=== PATIENT | female | born 1950 | race African-American/Black ===

== ENCOUNTER → 2016-10-28 | Outpatient (CLI) | payer MEDICARE, MEDICAID ==
[~2016-10-28] MED LIST: AMBIEN10 M1 ORAL; AMBIEN5 MG ORAL; ATIVAN; ATIVAN2 MG ORAL; ATIVAN2 MG PO; BENADRYL ALLERG25 M1 PO; BENADRYL25 MG ORAL; CIPRO500 MG PO; CYMBALTA20 MG ORAL; CYMBALTA30 MG ORAL; CYMBALTA60 MG ORAL; DILAUDID 2 MG; DILAUDID2 MG PO; FENTANYL1 EAC1 TOPIC; FOLIC ACID1 MG ORAL; GLUCOPHAGE500 MG PO; HERBAL TEA PO; KLONOPIN1 MG ORAL; LACTULOSE20 GM/301 ORAL; LAMICTAL100 MG PO; LITHIUM CARBON300 MG ORAL; METFORMIN HCL1000 M1 ORAL; MILK THISTLE140 MG PO; MIRTAZAPINE7.5 MG ORAL; NEXIUM10 MG PO; NORCO 10/3251 EA ORAL; NORCO 5-325 TA1 EACH ORAL; PANTOPRAZOLE SO40 MG ORAL; QUETIAPINE FUMA25 MG ORAL; SOMA350 MG PO; TOPAMAX25 MG ORAL; TOPIRAMATE25 MG ORAL; TRAMADOL HCL50 MG ORAL; ULTRAM50 MG ORAL; UNOBMED; VALIUM10 MG ORAL; VITAMIN D250000 UNI1 ORAL; VITAMIN D350000 UNIT ORAL; XANAX2 MG ORAL; ZESTRIL20 MG ORAL; ZOFRAN4 MG ORAL; [UNRECOGNIZED DRUG - OTHER]; milk thistle PO; mvi PO; vit d PO
[2016-10-28 10:02] LABS: BASOPHILS % (AUTO) 0.8 % (0.0-2.0); EOSINOPHILS % (AUTO) 2.6 % (0.0-3.0); LYMPHOCYTES % (AUTO) 18.8 % (20.0-45.0); MEAN CORPUSCULAR HEMOGLOBIN 30.5 PG (27.0-31.0); MEAN CORPUSCULAR HGB CONC 31.7 G/DL (32.0-36.0); MEAN CORPUSCULAR VOLUME 96 FL (80-99); MEAN PLATELET VOLUME 7.8 FL (6.5-10.1); MONOCYTES % (AUTO) 10.8 % (1.0-10.0); PLATELET COUNT 121 K/UL (150-450); RED BLOOD COUNT 3.75 M/UL (4.20-5.40); RED CELL DISTRIBUTION WIDTH 14.3 % (11.6-14.8); WHITE BLOOD COUNT 4.6 K/UL (4.8-10.8)
[2016-10-28 10:21] LABS: ALANINE AMINOTRANSFERASE 7 U/L (3-33); ALBUMIN/GLOBULIN RATIO 0.7 (1.0-2.7); AMYLASE 64 U/L (10-110); ANION GAP 13 (5-15); ASPARTATE AMINO TRANSFERASE 22 U/L (5-40); CALCIUM 8.9 mg/dL (8.6-10.2); CARBON DIOXIDE 25 mEQ/L (20-30); CHLORIDE 102 mEQ/L (98-107); CREATININE 0.6 mg/dL (0.5-0.9); GLOMERULAR FILTRATION RATE > 60 mL/min (>60); HEMOLYSIS 2; LIPASE 65 U/L (< 60); MAGNESIUM 1.8 mg/dL (1.7-2.5); POTASSIUM 3.8 mEQ/L (3.4-4.9); SODIUM 140 mEQ/L (135-145); TOTAL PROTEIN 7.7 g/dL (6.6-8.7)
[2016-10-28 10:57] LABS: BILIRUBIN,DIRECT 0.4 mg/dL (0.1-0.3)
== END | disposition home or self-care (01) ==
LOC: LAB 09:20
DX: J11.1 Influenza due to unidentified influenza virus with other respiratory manifestations (principal); K74.60 Unspecified cirrhosis of liver
CPT/HCPCS: 36415; 80053; 82150; 82248; 82306; 82607; 82746; 83690; 83735; 84443; 85025; 86710

== ENCOUNTER 2017-01-03 10:06 | Emergency (ER) | payer MEDICARE, MEDICAID ==
[~2017-01-03] VITALS: Ht 160 cm; Wt 127.0 kg
[~2017-01-03 10:06] MED LIST changes: +DIOVAN320 MG ORAL; +DIOVAN80 MG ORAL; +IBUPROFEN600 MG ORAL; +VITAMIN D-32000 UNI1 PO
[2017-01-03 10:37] VITALS: BP 127/75
--- NOTE | 2017-01-03 11:01 | Diagnostic Imaging Report ---
Indication: PAIN Technique: One view of the chest Comparison: 01/17/2016 Findings: Lungs and pleural spaces are clear. Heart size is normal. No significant change Impression: No acute process
[2017-01-03 11:42] LABS: BASOPHILS % (AUTO) 1.1 % (0.0-2.0); EOSINOPHILS % (AUTO) 1.6 % (0.0-3.0); LYMPHOCYTES % (AUTO) 21.9 % (20.0-45.0); MEAN CORPUSCULAR HEMOGLOBIN 31.1 PG (27.0-31.0); MEAN CORPUSCULAR HGB CONC 32.3 G/DL (32.0-36.0); MEAN CORPUSCULAR VOLUME 96 FL (80-99); MEAN PLATELET VOLUME 7.7 FL (6.5-10.1); MONOCYTES % (AUTO) 9.7 % (1.0-10.0); NEUTROPHILS % (AUTO) 65.7 % (45.0-75.0); PLATELET COUNT 122 K/UL (150-450); RED BLOOD COUNT 3.97 M/UL (4.20-5.40); RED CELL DISTRIBUTION WIDTH 13.7 % (11.6-14.8); WHITE BLOOD COUNT 4.8 K/UL (4.8-10.8)
[2017-01-03 11:53] LABS: INR 1.1 (0.9-1.1); PROTHROMBIN TIME 11.7 SEC (9.30-11.50)
[2017-01-03 11:54] LABS: TROPONIN I < 0.30 ng/mL (<=0.30)
[2017-01-03 11:55] LABS: ALANINE AMINOTRANSFERASE 7 U/L (3-33); ALBUMIN/GLOBULIN RATIO 0.7 (1.0-2.7); ANION GAP 16 (5-15); ASPARTATE AMINO TRANSFERASE 19 U/L (5-40); CALCIUM 8.8 mg/dL (8.6-10.2); CARBON DIOXIDE 22 mEQ/L (20-30); CHLORIDE 99 mEQ/L (98-107); CHOLESTEROL 174 mg/dL (< 200); CHOLESTEROL/HDL RATIO 2.6 (3.3-4.4); CREATININE 0.8 mg/dL (0.5-0.9); GLOMERULAR FILTRATION RATE > 60 mL/min (>60); HEMOLYSIS 11; LDL CHOLESTEROL (CALC.) 86 mg/dL (60-99); POTASSIUM 3.6 mEQ/L (3.4-4.9); SODIUM 137 mEQ/L (135-145); TOTAL PROTEIN 7.5 g/dL (6.6-8.7)
[2017-01-03] MEDS ORDERED: Norco 5mg/325mg tab ORAL ONE ×2 (12:00→13:15)
[2017-01-03 12:05] LABS: CKMB < 1.5 ng/mL (< 3.8)
--- NOTE | 2017-01-03 12:20 | Emergency Room Report ---
History of Present Illness General Chief Complaint: Multiple Trauma/Fall Source: Patient, Medical Record Present Illness HPI This patient has many chronic medical conditions. She has a history of cirrhosis, rheumatoid arthritis and chronic pain. Patient states that she slipped and fell a couple days ago and has allover body pain. She is requesting pain medication. She denies weakness. She denies neck pain or stiffness. She denies fever or chills. She has no other complaints. Allergies: Coded Allergies: NUT - UNSPECIFIED (Unverified Allergy, Severe, 01/18/16) ASPIRIN (Verified Allergy, Unknown, 01/17/16) EPHEDRINE (Unverified Allergy, Unknown, 09/06/15) HEPARIN ANALOGUES (Verified Allergy, Unknown, 04/09/13) unknown reaction. IBUPROFEN (Verified Allergy, Unknown, UPSET STOMACH/ RASH, 09/15/09) Kiwi (Verified Allergy, Unknown, 10/03/08) STRAWBERRY (Verified Allergy, Unknown, 10/03/08) Uncoded Allergies: ANESTHESIA FOR TOOTH EXTRACTION (Allergy, Unknown, 10/03/08) blood thinner (Allergy, Unknown, 01/18/16) was informed by [facility] not to take blood thinner anymore Patient History Past Medical History: see triage record, HTN, other - cirrhosis, HCV, morbid obesity, fibromyalgia Social History: Denies: alcohol use, drug use, smoking Reviewed Nursing Documentation: PMH: Agreed, PSxH: Agreed Nursing Documentation-PMH Past Medical History: No History, Except For Hx Hypertension: Yes Hx Diabetes: Yes Hx Cancer: No Hx Gastrointestinal Problems: Yes History Of Psychiatric Problem: Yes - bipolar depression Hx Neurological Problems: No Hx Peripheral Neuropathy: Yes Hx Concentration Difficulty: Yes Hx Dizziness: Yes Hx Headaches: Yes Hx Numbness: Yes - upper and lower extremities Hx Weakness: Yes Hx Fatigue: Yes Review of Systems All Other Systems: negative except mentioned in HPI Physical Exam Vital Signs Date Time Temp Pulse Resp B/P Pulse Ox O2 Delivery O2 Flow Rate FiO2 01/03/17 10:11 98.8 86 16 127/75 96 Room Air Sp02 EP Interpretation: reviewed, normal General Appearance: no apparent distress, alert, GCS 15, non-toxic Head: normocephalic, atraumatic Eyes: bilateral eye PERRL, bilateral eye normal inspection ENT: hearing grossly normal, normal pharynx, no angioedema, normal voice Neck: full range of motion, supple/symm/no masses Respiratory: chest non-tender, lungs clear, normal breath sounds, speaking full sentences Cardiovascular #1: regular rate, rhythm, no edema Gastrointestinal: normal bowel sounds, non tender, soft, non-distended, no guarding, no rebound Rectal: deferred Musculoskeletal: back normal, gait/station normal, normal range of motion, non- tender Neurologic: alert, oriented x3, responsive, motor strength/tone normal, sensory intact, speech normal Psychiatric: judgement/insight normal, memory normal, mood/affect normal, no suicidal/homicidal ideation Skin: normal color, no rash, warm/dry, well hydrated Medical Decision Making Diagnostic Impression: Primary Impression: Chronic pain ER Course This patient has a clinical presentation consistent with mechanical back pain and chronic pain. There are no red flags on physical exam. The patient denies any concerning features such as trauma, fevers, night sweats, history of malignancy, pain worse at night, IV drug abuse, urinary/fecal incontinence or retention, focal weakness or change in sensation, or refractory pain. Given these pertinent negatives in the history and physical exam an emergent cause of the back pain such as epidural abscess, metastasis to bone, cauda equina syndrome, and fracture is less likely. I also doubt emergent cardiovascular cause of back pain such as aortic dissection a ruptured abdominal aortic aneurysm given patient with equal pulses in all 4 extremities with no diastolic murmur or pulsatile abdominal mass. The patient was counseled that, though unlikely, the possibility of an emergent cause of back pain may still be present and that the patient should return immediately if symptoms persist or worsen. The symptoms are reproducible with movement. Patient had a benign evaluation and neurologic examination. CT of the head is unremarkable. Laboratory workup is noncontributory. No emergency etiology was identified. Labs Test 01/03/17 11:30 White Blood Count 4.8 K/UL (4.8-10.8) Red Blood Count 3.97 M/UL (4.20-5.40) Hemoglobin 12.3 G/DL (12.0-16.0) Hematocrit 38.2 % (37.0-47.0) Mean Corpuscular Volume 96 FL (80-99) Mean Corpuscular Hemoglobin 31.1 PG (27.0-31.0) Mean Corpuscular Hemoglobin Concent 32.3 G/DL (32.0-36.0) Red Cell Distribution Width 13.7 % (11.6-14.8) Platelet Count 122 K/UL (150-450) Mean Platelet Volume 7.7 FL (6.5-10.1) Neutrophils (%) (Auto) 65.7 % (45.0-75.0) Lymphocytes (%) (Auto) 21.9 % (20.0-45.0) Monocytes (%) (Auto) 9.7 % (1.0-10.0) Eosinophils (%) (Auto) 1.6 % (0.0-3.0) Basophils (%) (Auto) 1.1 % (0.0-2.0) Prothrombin Time 11.7 SEC (9.30-11.50) Prothromb Time International Ratio 1.1 (0.9-1.1) Activated Partial Thromboplast Time 26 SEC (23-33) Sodium Level 137 mEQ/L (135-145) Potassium Level 3.6 mEQ/L (3.4-4.9) Chloride Level 99 mEQ/L (98-107) Carbon Dioxide Level 22 mEQ/L (20-30) Anion Gap 16 (5-15) Blood Urea Nitrogen 11 mg/dL (7-23) Creatinine 0.8 mg/dL (0.5-0.9) Estimat Glomerular Filtration Rate > 60 mL/min (>60) Glucose Level 227 mg/dL (74-106) Calcium Level 8.8 mg/dL (8.6-10.2) Total Bilirubin 1.3 mg/dL (0.0-1.2) Direct Bilirubin 0.3 mg/dL (0.1-0.3) Aspartate Amino Transf (AST/SGOT) 19 U/L (5-40) Alanine Aminotransferase (ALT/SGPT) 7 U/L (3-33) Alkaline Phosphatase 75 U/L (35-104) Total Creatine Kinase 56 U/L (26-140) Creatine Kinase MB < 1.5 ng/mL (< 3.8) Creatine Kinase MB Relative Index Troponin I < 0.30 ng/mL (<=0.30) Total Protein 7.5 g/dL (6.6-8.7) Albumin 3.3 g/dL (3.5-5.2) Globulin 4.2 g/dL Albumin/Globulin Ratio 0.7 (1.0-2.7) Triglycerides Level 103 mg/dL (< 150) Cholesterol Level 174 mg/dL (< 200) LDL Cholesterol 86 mg/dL (60-99) HDL Cholesterol 67 mg/dL (> 60) Cholesterol/HDL Ratio 2.6 (3.3-4.4) EKG Diagnostic Results Rate: normal ST Segments: no acute changes Rhythm Strip Diag. Results EP Interpretation: yes Rate: 80 Rhythm: NSR, no PVC's, no ectopy CT/MRI/US Diagnostic Results CT/MRI/US Diagnostic Results : Imaging Test Ordered: CT head Impression No intracranial bleed, mass effect or edema. See official report. Last Vital Signs Date Time Temp Pulse Resp B/P Pulse Ox O2 Delivery O2 Flow Rate FiO2 01/03/17 10:37 16 127/75 96 Room Air 01/03/17 10:11 98.8 86 Status: improved Disposition: HOME, SELF-CARE Condition: Improved Referrals: NOT CHOSEN IPA/,REFERRING (PCP) JENN MODI D.O. Jan 03, 2017 12:20
[2017-01-03 12:28] LABS: BILIRUBIN,DIRECT 0.3 mg/dL (0.1-0.3)
[2017-01-03 13:01] VITALS: BP 116/73
[2017-01-03 13:14] VITALS: BP 116/73
--- NOTE | 2017-01-03 16:44 | Diagnostic Imaging Report ---
Indications: Dizziness, status post fall, head trauma Technique: Spiral acquisitions obtained through the brain. Angled axial and coronal 5 x 5 mm slices were reconstructed. Total dose length product 1333 mGycm. CTDI vol(s) 70 mGy. Dose reduction achieved using automated exposure control Comparison: 07/10/2013 Findings: Periventricular deep white matter of low attenuation is again demonstrated, slightly more striking on the prior exam. Small caliber of the ventricles is stable. Normal extra axial CSF spaces. No acute hemorrhage or edema, mass effect or midline shift. Intact calvarium. Visualized orbits and sinuses are unremarkable. Impression: Progressive periventricular deep white matter low attenuation, since 07/02/2013 exam: Consistent with chronic ischemic changes. Negative for acute intracranial bleed or mass effect. The CT scanner at [facility] is accredited by the [employer] and the scans are performed using protocols designed to limit radiation exposure to as low as reasonably achievable to attain images of sufficient resolution adequate for diagnostic evaluation.
--- NOTE | 2017-01-06 20:22 | Cardiology Report ---
APPROVED REPORT EKG Measurement Heart [id number] Normal sinus rhythm Nonspecific T wave abnormality Abnormal ECG
== END 2017-01-03 13:27 | disposition home or self-care (01) ==
LOC: EMR 10:28
DX: G89.29 Other chronic pain (principal); M54.9 Dorsalgia, unspecified; R42 Dizziness and giddiness; M06.9 Rheumatoid arthritis, unspecified; I10 Essential (primary) hypertension; E11.9 Type 2 diabetes mellitus without complications; Z91.018 Allergy to other foods; Z88.6 Allergy status to analgesic agent; Z88.8 Allergy status to other drugs, medicaments and biological substances
CPT/HCPCS: 36415; 70450; 71010; 80053; 80061; 82248; 82550; 82553; 82962; 84484; 85025; 85610; 85730; 93005; 96360

== ENCOUNTER 2017-04-17 13:25 | Outpatient (CLI) | payer MEDICARE, MEDICAID ==
--- NOTE | 2017-04-17 13:57 | GI Progress Note ---
Assessment/Plan Problems: (1) Esophageal varices ICD Codes: I85.00 - Esophageal varices without bleeding SNOMED: 98028495 (2) Cirrhosis ICD Codes: K74.60 - Cirrhosis SNOMED: 27165879 (3) Diabetes ICD Codes: E11.9 - Diabetes SNOMED: 88562050 (4) Anxiety ICD Codes: F41.9 - Anxiety SNOMED: 32730413 (5) Chronic pain ICD Codes: G89.29 - Chronic pain SNOMED: 82686005 (6) Abdominal pain, generalized ICD Codes: R10.84 - Generalized abdominal pain SNOMED: 376671859 Status: stable Status Narrative Seen with Dr. Minor. Assessment/Plan Endoscopy Procedure Note Indication for Procedure: screening Procedures Performed: colonoscopy Operative Findings/Diagnosis: 3 polyps PETR MINOR - Jun 05, 2016 11:21 s/p Hep C tx with Harvoni >> repeat Hep C quant lab draw ordered abdominal U/S referred to Dr. Fernandez for DM mgmt RTC after imaging and blood studies will consider repeat colon next year given poor prep on previous Subjective Subjective abdominal pain >> RLQ/RUQ Nausea after eating has not taken DM medication x 1 months, dc metformin by self here for vicodan refill Objective T 98.2 BP 139/77 P 70 98 RA weight gain >> 304lbs General Appearance: no apparent distress, alert, obese Cardiovascular: normal rate Respiratory/Chest: normal breath sounds, no respiratory distress Abdominal Exam: normal bowel sounds, non tender, soft Genitourinary/Rectal: normal rectal exam Extremities: normal range of motion Edilma Juarez N.P. Apr 17, 2017 13:57
[2017-04-17 14:07] VITALS: BP 139/77
--- NOTE | 2017-04-18 08:01 | Reflections ---
Date : 04/17/2017 Subjective: The patient is withdrawn, guarded, anxious, internally preoccupied. Mood is depressed and anxious. Mental Status Evaluation: Alert and oriented to self and situation. Mood is anxious. Affect is appropriate. Thought process is linear. Cognition is intact. Impulse control, insight, and judgment is fair. DIAGNOSIS: Bipolar disorder, depressed. Plan: Continue with current management. Continue to monitor symptoms and behavior. The patient still reports feeling a lot of anxiety, depression, and paranoia. The patient has p.r.n. Seroquel and she is advised to use it when she feels nervous. She talked about risks and benefits, side effects in terms of interactions between benzodiazepines and Seroquel. She was advised not to take the medication when driving. Otherwise, no new symptoms observed or reported. The patient is seen in brief supportive psychotherapy. Chart reviewed. Case discussed with staff. We will continue to monitor the case. Isma Little M.D. DR: BRIDGET JOB#: [id number] CC: YANDY
[2017-05-15] MEDS ORDERED: ATIVAN1 MG ORAL (13:42)
== END 2017-04-17 14:00 | disposition home or self-care (01) ==
LOC: PAN 13:25
DX: I85.00 Esophageal varices without bleeding (principal); K74.60 Unspecified cirrhosis of liver; E11.9 Type 2 diabetes mellitus without complications; F41.9 Anxiety disorder, unspecified; G89.29 Other chronic pain; R10.84 Generalized abdominal pain; R63.5 Abnormal weight gain
CPT/HCPCS: 99211

== ENCOUNTER 2017-06-02 13:56 | Outpatient (CLI) | payer MEDICARE, MEDICAID ==
[~2017-06-02 13:56] MED LIST changes: +ATIVAN1 MG ORAL
[2017-06-02] MEDS ORDERED: SOMA250 MG PO (14:30)
--- NOTE | 2017-06-02 14:30 | GI Progress Note ---
Assessment/Plan Problems: (1) Chronic pain ICD Codes: G89.29 - Chronic pain SNOMED: 14740497 (2) Diabetes ICD Codes: E11.9 - Diabetes SNOMED: 78444149 (3) Cirrhosis ICD Codes: K74.60 - Cirrhosis SNOMED: 43487261 (4) Hepatitis C ICD Codes: B19.20 - Hepatitis C SNOMED: 01231137 Status: stable Status Narrative Seen with Dr. Minor. Assessment/Plan Endoscopy Procedure Note Indication for Procedure: screening Procedures Performed: colonoscopy Operative Findings/Diagnosis: 3 polyps PETR MINOR - Jun 05, 2016 11:21 s/p Hep C tx with Harvoni >> repeat Hep C quant lab draw ordered abdominal U/S RTC after imaging and blood studies will consider repeat colon next year given poor prep on previous Subjective Subjective back, knee, shoulder pain no GI symptoms did not do abdominal U/S or Hep C quant recent admission to [facility] PCP dc norco, ordered soma and voltaren gel Objective T 98.7 BP 130/73 HR 79 93 RA General Appearance: WD/WN, no apparent distress, alert, overweight Cardiovascular: normal rate Respiratory/Chest: normal breath sounds, no respiratory distress Abdominal Exam: normal bowel sounds, non tender, soft Extremities: normal range of motion, non-tender Edilma Juarez N.P. Jun 02, 2017 14:30
[2017-06-02 14:59] VITALS: BP 130/73
== END 2017-06-02 14:50 | disposition home or self-care (01) ==
LOC: PAN 13:56
DX: G89.29 Other chronic pain (principal); E11.9 Type 2 diabetes mellitus without complications; K74.60 Unspecified cirrhosis of liver; B19.20 Unspecified viral hepatitis C without hepatic coma; M54.9 Dorsalgia, unspecified
CPT/HCPCS: 99211

== ENCOUNTER 2017-06-03 10:00 | Outpatient (CLI) | payer MEDICARE, MEDICAID ==
[~2017-06-03 10:00] MED LIST changes: +SOMA250 MG PO
[2017-06-03 11:10] LABS: LYMPHOCYTES % (AUTO) 23.4 % (20.0-45.0); MEAN CORPUSCULAR HEMOGLOBIN 31.2 PG (27.0-31.0); MEAN CORPUSCULAR HGB CONC 31.9 G/DL (32.0-36.0); MEAN CORPUSCULAR VOLUME 98 FL (80-99); MEAN PLATELET VOLUME 6.8 FL (6.5-10.1); MONOCYTES % (AUTO) 8.7 % (1.0-10.0); PLATELET COUNT 121 K/UL (150-450); RED BLOOD COUNT 3.59 M/UL (4.20-5.40); RED CELL DISTRIBUTION WIDTH 13.4 % (11.6-14.8); WHITE BLOOD COUNT 5.4 K/UL (4.8-10.8)
[2017-06-03 11:34] LABS: ALANINE AMINOTRANSFERASE 16 U/L (12-78); ALBUMIN/GLOBULIN RATIO 0.6 (1.0-2.7); ANION GAP 6 mmol/L (5-15); ASPARTATE AMINO TRANSFERASE 25 U/L (15-37); CARBON DIOXIDE 29 MMOL/L (21-32); CHLORIDE 107 MMOL/L (98-107); CREATININE 0.8 MG/DL (0.55-1.30); GLOMERULAR FILTRATION RATE > 60 mL/min (>60); POTASSIUM 4.2 MMOL/L (3.5-5.1); SODIUM 142 MMOL/L (136-145); TOTAL PROTEIN 8.3 G/DL (6.4-8.2)
[2017-06-03 12:36] LABS: HEMOGLOBIN A1C 5.9 % (4.3-6.0)
[2017-06-05 15:08] LABS: HEPATITIS C QUANT HCV Not Detected IU/mL (.)
== END 2017-06-03 12:00 | disposition home or self-care (01) ==
LOC: LAB 10:00 → ULS 10:55 → LAB 12:00
DX: B19.20 Unspecified viral hepatitis C without hepatic coma (principal)
CPT/HCPCS: 36415; 80053; 83036; 85025; 87522

== ENCOUNTER 2017-06-30 13:26 | Outpatient (CLI) | payer MEDICARE, MEDICAID ==
[2017-06-30 10:05] LABS: ALANINE AMINOTRANSFERASE 14 U/L (12-78); AMYLASE 64 U/L (25-115); ASPARTATE AMINO TRANSFERASE 24 U/L (15-37); BILIRUBIN,DIRECT 0.3 MG/DL (0.0-0.3); LIPASE 339 U/L (73-393); TOTAL PROTEIN 8.2 G/DL (6.4-8.2)
--- NOTE | 2017-07-02 08:12 | Diagnostic Imaging Report ---
Indication: Abdominal pain, hepatitis C, cirrhosis Technique: Rousseau-scale and duplex images of the upper abdomen were obtained Comparison: 08/07/2013 Findings: Gallbladder demonstrates gallstones. No wall thickening or pericholecystic fluid Sonographic Simon's sign is negative. Common bile duct measures 5 mm in diameter. No intrahepatic biliary ductal dilatation. Liver demonstrates coarsened echogenicity and surface nodularity. There is reversed flow in the portal vein. There are varices in the epigastric region. Pancreas is unremarkable. The spleen is enlarged, measuring 14.3 cm long axis dimension Left kidney measures 13.5 cm in length. Right kidney measures 11.7 cm length. Both kidneys demonstrate normal echogenicity. There is no hydronephrosis. No focal abnormality . Abdominal aorta is partially obscured by bowel gas, visualized portions are non-aneurysmal . Impression: Cholelithiasis. Negative for dilated ducts Evidence of hepatic cirrhosis, also previously described Evidence of portal hypertension, with hepatofugal portal vein flow, varices and splenomegaly, also previously described
== END 2017-06-30 15:26 | disposition home or self-care (01) ==
LOC: ULS 13:26
DX: K74.60 Unspecified cirrhosis of liver (principal); R10.9 Unspecified abdominal pain; Z86.19 Personal history of other infectious and parasitic diseases
CPT/HCPCS: 36415; 76700; 80076; 82105; 82150; 83690

== ENCOUNTER 2017-07-08 11:17 | Outpatient (CLI) | payer MEDICARE, MEDICAID ==
--- NOTE | 2015-08-01 16:37 | IOP Daily Group Progress Note ---
IOP Daily Group Progress Note Treatment Plan/Target Problem: Date: Aug 01, 2015 Problem: depression Program: reflections Group Reflections - Friday: group 2 (10:35am-11:20am) Therapy Goal(s) of Group: assertiveness skills, coping tools for symptoms, coping with change, identifying strengths, impact of current issues on mood, improving self esteem Observations: anxious, engaged, low energy, participated Staff Intervention: assessed for safety/suicidality, assessed pt's current mood , assisted identifying coping tools, assisted with identifying symptoms, assisted with problem solving, encouraged patient participation, clarified pt issues, facilitated discussion, normalized feelings, provided support, reflective listening, reframed, validated feelings Response/Progress Noted: Pt participated in a discussion group about processing and skill [id number] and with discussion of short term and credit operations specialist goals with steps/ways to achieve them. Encouraged pt with identifying personal goals. Discussed the achievement of goals help with a positive mood, pride and a sense of accomplishment when goals are met. Pt stated "I like coming to group and happy to be there." She also said that she doesn't come to often. MARIBETH PINEDA Aug 01, 2015 16:37
[2017-07-08 11:37] VITALS: BP 158/86
--- NOTE | 2017-07-09 09:19 | GI Progress Note ---
Assessment/Plan Problems: (1) Diabetes ICD Codes: E11.9 - Diabetes SNOMED: 63668933 (2) Cirrhosis ICD Codes: K74.60 - Cirrhosis SNOMED: 16513854 (3) Esophageal varices ICD Codes: I85.00 - Esophageal varices without bleeding SNOMED: 50035821 (4) Chronic pain ICD Codes: G89.29 - Chronic pain SNOMED: 84553408 (5) Abdominal pain, generalized ICD Codes: R10.84 - Generalized abdominal pain SNOMED: 617331323 Status: stable Status Narrative Seen with Dr. Minor. Assessment/Plan Endoscopy Procedure Note Indication for Procedure: screening Procedures Performed: colonoscopy Operative Findings/Diagnosis: 3 polyps PETR MINOR - Jun 05, 2016 11:21 abdominal U/S reviewed with patient >> - Impression: Cholelithiasis. Negative for dilated ducts - Evidence of hepatic cirrhosis, also previously described - Evidence of portal hypertension, with hepatofugal portal vein flow, varices and splenomegaly, also previously described s/p Hep C tx with Harvoni >> repeat Hep C quant lab draw, not detected on lab draw. RECOMMENDATIONS: RTC x 6 months for repeat U/S will consider repeat colon next year given poor prep on previous Subjective Gastrointestinal/Abdominal: Reports: no symptoms Objective Last 24 Hour Vital Signs Date Time Temp Pulse Resp B/P (MAP) Pulse Ox O2 Delivery O2 Flow Rate FiO2 07/08/17 11:37 98.3 73 18 158/86 100 General Appearance: WD/WN, no apparent distress, alert, obese Cardiovascular: normal rate Respiratory/Chest: normal breath sounds, no respiratory distress Abdominal Exam: normal bowel sounds, non tender, soft Extremities: normal range of motion, non-tender Edilma Juarez N.Boby Jul 09, 2017 09:19
== END 2017-07-08 11:55 | disposition home or self-care (01) ==
LOC: PAN 11:17
DX: K74.60 Unspecified cirrhosis of liver (principal); E11.9 Type 2 diabetes mellitus without complications; I85.00 Esophageal varices without bleeding; G89.29 Other chronic pain; R10.84 Generalized abdominal pain; K80.20 Calculus of gallbladder without cholecystitis without obstruction
CPT/HCPCS: 99212

== ENCOUNTER 2017-07-25 22:28 | Emergency (ER) | payer MEDICARE, MEDICAID ==
[~2017-07-25] VITALS: Ht 157.5 cm; Wt 131.5 kg
[2017-07-25 23:13] VITALS: BP 167/89
[2017-07-25] MEDS ORDERED: HYDROCHLOROTHIA25 MG ORAL (23:17)
[2017-07-25] MEDS ORDERED: CATAPRES0.1 MG ORAL (23:17)
--- NOTE | 2017-07-25 23:18 | Emergency Room Report ---
History of Present Illness General Chief Complaint: Eye Problems Source: Patient Present Illness HPI Is a 67-year-old female with history of asthma pressure. She is taking losartan but doesn't know the dose. She presents with chief complaint of redness to her right eye. Onset yesterday. Now the whole I is red. No fever or chills but no nausea no vomiting. No trauma. Patient said her blood pressure been running high with systolic in the 150-160. Yesterday was close to 200. No headache. No fever or chills. No chest pain. No coughing or congestion. Allergies: Coded Allergies: ASPIRIN (Verified Allergy, Unknown, 01/17/16) EPHEDRINE (Unverified Allergy, Unknown, 09/06/15) HEPARIN ANALOGUES (Verified Allergy, Unknown, 04/09/13) unknown reaction. IBUPROFEN (Verified Allergy, Unknown, UPSET STOMACH/ RASH, 09/15/09) Patient History Past Medical History: see triage record, old chart reviewed, HTN Past Surgical History: other Pertinent Family History: none Social History: Denies: smoking Now: No Immunizations: other Reviewed Nursing Documentation: PMH: Agreed, PSxH: Agreed Nursing Documentation-PMH Hx Cardiac Problems: No - Hep C Hx Hypertension: Yes Hx Diabetes: Yes Hx Cancer: No Hx Gastrointestinal Problems: Yes - Esophageal varices, Cirrhosis Hx Neurological Problems: No Hx Peripheral Neuropathy: Yes Hx Concentration Difficulty: Yes Hx Dizziness: Yes Hx Headaches: Yes Hx Numbness: Yes - upper and lower extremities Hx Weakness: Yes Hx Fatigue: Yes Review of Systems Eye: Denies: eye pain, blurred vision ENT: Denies: ear pain, nose congestion, throat swelling Respiratory: Denies: cough, shortness of breath Cardiovascular: Denies: chest pain, palpitations Gastrointestinal: Denies: abdominal pain, diarrhea, nausea, vomiting Musculoskeletal: Denies: back pain, joint pain Skin: Denies: rash Neurological: Denies: headache, numbness Endocrine: Denies: increased thirst, increased urine Hematologic/Lymphatic: Denies: easy bruising All Other Systems: negative except mentioned in HPI Physical Exam Vital Signs Date Time Temp Pulse Resp B/P (MAP) Pulse Ox O2 Delivery O2 Flow Rate FiO2 07/25/17 22:35 98.1 77 16 167/89 98 Room Air vitals with high blood pressure Sp02 EP Interpretation: reviewed, normal General Appearance: well appearing, no apparent distress, alert Head: normocephalic, atraumatic Eyes: right eye other - Right eye with diffuse conjuncval hemorrhage, bilateral eye PERRL, bilateral eye EOMI ENT: hearing grossly normal, normal pharynx Neck: full range of motion, supple, no meningismus Respiratory: chest non-tender, lungs clear, normal breath sounds Cardiovascular #1: regular rate, rhythm, no murmur Gastrointestinal: normal bowel sounds, non tender, no mass, no organomegaly, no bruit, non-distended Musculoskeletal: back normal, gait/station normal, normal range of motion Psychiatric: mood/affect normal Skin: warm/dry Medical Decision Making Diagnostic Impression: Primary Impression: Essential (primary) hypertension Additional Impression: Subconjunctival hemorrhage of right eye ER Course Patient with some conjunctival hemorrhage. Most likely secondary to her high blood pressure. I see no evidence of endorgan damage. No infection. We'll discharge home. Last Vital Signs Date Time Temp Pulse Resp B/P (MAP) Pulse Ox O2 Delivery O2 Flow Rate FiO2 07/25/17 23:12 167/89 07/25/17 22:35 98.1 77 16 98 Room Air Status: improved Disposition: HOME, SELF-CARE Condition: Stable Scripts Clonidine Hcl* (CATAPRES*) 0.1 Mg Tablet 0.1 MG ORAL EVERY 8 HOURS for systolic blood pressure >160, #30 TAB Prov: EVAN BORRERO M.D. 07/25/17 Hydrochlorothiazide* (HYDROCHLOROTHIAZIDE*) 25 Mg Tablet 25 MG ORAL DAILY, #30 TAB Prov: EVAN BORRERO M.D. 07/25/17 Additional Instructions: Followup with your DrYue in 2-5 days for blood pressure recheck. Return if symptom worsen. EVAN BORRERO M.D. Jul 25, 2017 23:18
[2017-07-25 23:29] VITALS: BP 119/76
[2017-07-25 23:31] VITALS: BP 119/76
--- NOTE | 2017-08-03 16:00 | Reflections ---
DATE : 07/24/2017 SUBJECTIVE: The patient is pleasant, calm, and cooperative with interview. Follows directions. Denies any new complaints. She continues to be somatically preoccupied. Multiple complaints of pain, also anxiety, depression, and irritability. MENTAL STATUS EVALUATION: Alert and oriented to self and situation. Mood is anxious. Affect is appropriate. Thought process is linear. Cognition is intact. Impulse control, insight, and judgment is fair. DIAGNOSIS: Bipolar disorder, depressed. PLAN: Continue with current management. Continue to monitor symptoms and behavior. Medications reviewed. Chart reviewed. Case discussed with staff. The patient is seen in a brief supportive psychotherapy. Cymbalta is increased to 120 mg daily. Risks, benefits, and side effects discussed. Isma Little M.D. DR: ANN MARIE JOB#: [id number] CC: YANDY
[2017-08-07] MEDS ORDERED: ABILIFY10 MG ORAL (13:45)
--- NOTE | 2017-08-11 17:16 | IOP Daily Group Progress Note ---
IOP Daily Group Progress Note Treatment Plan/Target Problem: Date: Aug 06, 2017 Problem: depression Program: reflections Group Reflections - Friday: group 2 (10:35am-11:20am) Therapy Focus/Approach of Group: skills Goal(s) of Group: coping tools for symptoms, measurable signs of progress, verbalize current thoughts and mood Observations: depressed mood, engaged, lucid, open, participated, self disclosing Staff Intervention: assisted identifying coping tools, encouraged patient participation, facilitated discussion, prompted pt, provided support, reflective listening, summarized, validated feelings Staff Intervention: Therapist provided a safe space for patients to share and work on their issues and to identify and verbalize what life issues they are experiencing and coping skills they are utilizing with those issues, and to share signs of personal progress since starting group therapy. Response/Progress Noted: Pt. participated in a psychotherapeutic process group where Pt. would identify and verbalize what life issues they are experiencing and coping skills they are utilizing with those issues, and to identify and verbalize measurable signs of progress they have made since starting group therapy. This was evidenced by the Pt. stating that since coming to this therapy her "definition of unconditional love has been redefined" because of the support of this group and staff. Vahid Sow Aug 11, 2017 17:16
== END 2017-07-25 23:31 | disposition home or self-care (01) ==
LOC: EMR 23:00
DX: H11.31 Conjunctival hemorrhage, right eye (principal); I10 Essential (primary) hypertension; E11.9 Type 2 diabetes mellitus without complications; K74.60 Unspecified cirrhosis of liver; B19.20 Unspecified viral hepatitis C without hepatic coma; Z88.6 Allergy status to analgesic agent; Z88.8 Allergy status to other drugs, medicaments and biological substances
CPT/HCPCS: 90834; 90853; 99284

== ENCOUNTER 2017-09-29 13:22 | Outpatient (CLI) | payer MEDICARE, MEDICAID ==
[~2017-09-29 13:22] MED LIST changes: +ABILIFY10 MG ORAL; +CATAPRES0.1 MG ORAL; +HYDROCHLOROTHIA25 MG ORAL
--- NOTE | 2017-09-29 14:33 | GI Progress Note ---
Assessment/Plan Problems: (1) Cirrhosis ICD Codes: K74.60 - Cirrhosis SNOMED: 53361966 (2) Abdominal pain, generalized ICD Codes: R10.84 - Generalized abdominal pain SNOMED: 238392594 (3) Hepatitis C ICD Codes: B19.20 - Hepatitis C SNOMED: 68385864 Status: stable Status Narrative Seen with Dr. Minor. Assessment/Plan S/P Hep C tx abdominal US 06/29 >> cirrhosis repeat US in 12/2017. Zpack RTC x 3 months Subjective Subjective yellow cough SOB right sided flank pain sore throat Objective T 98.1 BP 164/81 HR 78 97 RA Denies any unintentional weight loss or changes in dietary habits. General Appearance: WD/WN, no apparent distress, alert, obese Cardiovascular: normal rate Respiratory/Chest: normal breath sounds, no respiratory distress Abdominal Exam: normal bowel sounds, non tender, soft Extremities: normal range of motion, non-tender Edilma Juarez N.P. Sep 29, 2017 14:33
== END 2017-09-29 13:55 | disposition home or self-care (01) ==
LOC: PAN 13:22
DX: K74.60 Unspecified cirrhosis of liver (principal); R10.84 Generalized abdominal pain; B19.20 Unspecified viral hepatitis C without hepatic coma; E66.9 Obesity, unspecified
CPT/HCPCS: 99211

== ENCOUNTER 2018-01-06 09:35 | Outpatient (CLI) | payer MEDICARE, MEDICAID ==
[~2018-01-06 09:35] MED LIST changes: +ALPRAZOLAM1 MG ORAL
--- NOTE | 2018-01-06 10:32 | GI Progress Note ---
Assessment/Plan Problems: (1) Cirrhosis ICD Codes: K74.60 - Cirrhosis SNOMED: 69255581 (2) Abdominal pain, generalized ICD Codes: R10.84 - Generalized abdominal pain SNOMED: 765554450 (3) Chronic pain ICD Codes: G89.29 - Chronic pain SNOMED: 37541313 (4) Esophageal varices ICD Codes: I85.00 - Esophageal varices without bleeding SNOMED: 72678162 (5) Diabetes ICD Codes: E11.9 - Diabetes SNOMED: 43184401 (6) Anxiety ICD Codes: F41.9 - Anxiety SNOMED: 46825189 Status: stable Status Narrative Seen with Dr. Minor. Assessment/Plan 2016 colonoscopy x 3 polyps history of cirrhosis s/p Hep C tx RUQ abdominal pain repeat abdominal U/S needs repeat labs recommend games manager consult RTC after imaging study The patient was seen and examined at bedside and all new and available data was reviewed in the patients chart. I agree with the above findings, impression and plan. (Patient seen earlier today. Signature stamp does not reflect patient encounter time.). - Ashutosh Minor MD Subjective Subjective diarrhea x 3 days, recent travel to [place] wheezing generalize fatigue Objective T 97.6 BP 133/62 P 78 95 RA weight gain General Appearance: WD/WN, no apparent distress, alert, obese Cardiovascular: normal rate Respiratory/Chest: normal breath sounds, no respiratory distress Abdominal Exam: normal bowel sounds, non tender, soft Extremities: normal range of motion, non-tender Андрей Juarez NP Jan 06, 2018 10:32
[2018-01-06 11:10] VITALS: BP 133/62
== END 2018-01-06 10:08 | disposition home or self-care (01) ==
LOC: PAN 09:35
DX: K74.60 Unspecified cirrhosis of liver (principal); R10.84 Generalized abdominal pain; G89.29 Other chronic pain; I85.00 Esophageal varices without bleeding; E11.9 Type 2 diabetes mellitus without complications; F41.9 Anxiety disorder, unspecified
CPT/HCPCS: 99212

== ENCOUNTER 2018-01-22 04:38 | Inpatient (IN) | payer MEDICARE, MEDICAID ==
[2018-01-22] VITALS (7 sets, daily range): BP systolic 88–135; BP diastolic 49–87
[~2018-01-22] VITALS: Ht 160 cm; Wt 127.0 kg
[2018-01-22] MEDS ORDERED: NORCO 7.5-3251 EACH ORAL (04:50)
[2018-01-22] MEDS ORDERED: POTASSIUM CHLOR8 ME2 PO (04:50)
[2018-01-22] MEDS ORDERED: LISINOPRIL5 MG ORAL (04:50)
[2018-01-22] MEDS ORDERED: TRULICITY0.75 MG/0. SQ (04:50)
--- NOTE | 2018-01-22 04:59 | Emergency Room Report ---
History of Present Illness General Chief Complaint: Chest Pain Source: Patient Present Illness HPI Patient present with complaints of mid epigastric pain was some discomfort in the midsternal area as well describes as a cramping sensation onset for 3-4 hours now Denies any vomiting or diarrhea denies any back or flank pain denies any dysuria frequency Patient has history of cirrhosis and liver disease Along with bipolar disorder Denies any recent fall or trauma Allergies: Coded Allergies: ASPIRIN (Verified Allergy, Unknown, 01/22/18) EPHEDRINE (Unverified Allergy, Unknown, 01/22/18) HEPARIN ANALOGUES (Verified Allergy, Unknown, 01/22/18) unknown reaction. IBUPROFEN (Verified Allergy, Unknown, UPSET STOMACH/ RASH, 01/22/18) Patient History Past Medical History: see triage record Pertinent Family History: none Last Menstrual Period: n/a Reviewed Nursing Documentation: PMH: Agreed; PSxH: Agreed Nursing Documentation-PMH Past Medical History: No History, Except For Hx Cardiac Problems: No - Hep C Hx Hypertension: Yes Hx Asthma: Yes Hx Diabetes: Yes Hx Cancer: No Hx Gastrointestinal Problems: Yes - Esophageal varices, Cirrhosis Hx Neurological Problems: No Hx Peripheral Neuropathy: Yes Hx Concentration Difficulty: Yes Hx Dizziness: Yes Hx Headaches: Yes Hx Numbness: Yes - upper and lower extremities Hx Weakness: Yes Hx Fatigue: Yes Review of Systems All Other Systems: negative except mentioned in HPI Physical Exam Vital Signs Date Time Temp Pulse Resp B/P (MAP) Pulse Ox O2 Delivery O2 Flow Rate FiO2 01/22/18 04:40 98.1 55 16 121/87 96 Room Air 98.1 Sp02 EP Interpretation: reviewed, normal General Appearance: well appearing, no apparent distress Head: normocephalic, atraumatic Eyes: bilateral eye PERRL, bilateral eye EOMI ENT: hearing grossly normal, normal pharynx, TMs + canals normal, uvula midline Neck: full range of motion, supple, no meningismus, no bony tend Respiratory: lungs clear, normal breath sounds, no rhonchi, no respiratory distress, no retraction, no accessory muscle use Cardiovascular #1: normal peripheral pulses, regular rate, rhythm, no gallop, no JVD, no murmur Gastrointestinal: normal bowel sounds, non tender, soft, no mass, no organomegaly, non-distended, no guarding, no hernia, no pulsatile mass, no rebound Genitourinary: no CVA tenderness Musculoskeletal: normal inspection Neurologic: oriented x3, responsive, halftone operator III-XII nml as tested, motor strength/ tone normal, sensory intact Psychiatric: mood/affect normal Skin: other Lymphatic: normal inspection, no adenopathy Medical Decision Making Diagnostic Impression: Primary Impression: ACS (acute coronary syndrome) ER Course Patient is a fairly complex patient with multiple differential to consideration including but not limited to cardiac cardiopulmonary and vascular emergencies Patient has extensive blood work and imaging initiated X-ray and this line initial blood work are normal Patient however also continues to complain of some increased lethargy and weakness With the history of liver disease hepatic encephalopathy is entertained Patient at this time will be admitted for chest pain rule out ACS She cannot take aspirin given her esophageal varices and refuses aspirin And admitted for further inpatient care Labs Test 01/22/18 05:11 White Blood Count 5.2 K/UL (4.8-10.8) Red Blood Count 3.43 M/UL (4.20-5.40) Hemoglobin 10.4 G/DL (12.0-16.0) Hematocrit 32.1 % (37.0-47.0) Mean Corpuscular Volume 94 FL (80-99) Mean Corpuscular Hemoglobin 30.5 PG (27.0-31.0) Mean Corpuscular Hemoglobin Concent 32.5 G/DL (32.0-36.0) Red Cell Distribution Width 13.7 % (11.6-14.8) Platelet Count 130 K/UL (150-450) Mean Platelet Volume 7.0 FL (6.5-10.1) Neutrophils (%) (Auto) 61.3 % (45.0-75.0) Lymphocytes (%) (Auto) 22.3 % (20.0-45.0) Monocytes (%) (Auto) 11.5 % (1.0-10.0) Eosinophils (%) (Auto) 4.0 % (0.0-3.0) Basophils (%) (Auto) 0.9 % (0.0-2.0) Sodium Level 139 MMOL/L (136-145) Potassium Level 3.8 MMOL/L (3.5-5.1) Chloride Level 106 MMOL/L (98-107) Carbon Dioxide Level 27 MMOL/L (21-32) Anion Gap 6 mmol/L (5-15) Blood Urea Nitrogen 9 mg/dL (7-18) Creatinine 0.9 MG/DL (0.55-1.30) Estimat Glomerular Filtration Rate > 60 mL/min (>60) Glucose Level 148 MG/DL (74-106) Calcium Level 8.1 MG/DL (8.5-10.1) Total Bilirubin 0.8 MG/DL (0.2-1.0) Aspartate Amino Transf (AST/SGOT) 19 U/L (15-37) Alanine Aminotransferase (ALT/SGPT) 14 U/L (12-78) Alkaline Phosphatase 87 U/L (46-116) Total Creatine Kinase 124 U/L (26-308) Creatine Kinase MB 0.6 NG/ML (0.0-3.6) Creatine Kinase MB Relative Index 0.4 Total Protein 7.3 G/DL (6.4-8.2) Albumin 2.6 G/DL (3.4-5.0) Globulin 4.7 g/dL Albumin/Globulin Ratio 0.6 (1.0-2.7) EKG Diagnostic Results Rate: bradycardiac Rhythm: NSR ST Segments: no acute changes Rhythm Strip Diag. Results EP Interpretation: yes Rate: 60 Rhythm: NSR, no PVC's, no ectopy Chest X-Ray Diagnostic Results Chest X-Ray Diagnostic Results : Chest X-Ray Ordered: Yes # of Views/Limited/Complete: 1 View Indication: Chest Pain EP Interpretation: Yes Interpretation: no consolidation, no effusion, no pneumothorax, no acute cardiopulmonary disease - Cardiomegaly Impression: No acute disease Electronically Signed by: Yuri Ferris DO Last Vital Signs Date Time Temp Pulse Resp B/P (MAP) Pulse Ox O2 Delivery O2 Flow Rate FiO2 01/22/18 04:40 98.1 55 16 121/87 96 Room Air 98.1 Status: improved Disposition: ADMITTED INPATIENT Condition: Serious Referrals: Ashutosh Minor MD (PCP) Yuri Ferris DO Jan 22, 2018 04:59
[2018-01-22] MEDS ORDERED: Mylanta II UD 30ml ORAL ONE (05:00)
[2018-01-22] MEDS ORDERED: Lidocaine 2% Visc 15ml soln ORAL ONE (05:00)
[2018-01-22] MEDS ORDERED: Dicyclomine HCl 10mg/5ml oral soln ORAL ONE (05:00)
[2018-01-22 05:19] LABS: BASOPHILS % (AUTO) 0.9 % (0.0-2.0); HEMATOCRIT 32.1 % (37.0-47.0); HEMOGLOBIN 10.4 G/DL (12.0-16.0); LYMPHOCYTES % (AUTO) 22.3 % (20.0-45.0); MEAN CORPUSCULAR VOLUME 94 FL (80-99); MONOCYTES % (AUTO) 11.5 % (1.0-10.0); NEUTROPHILS % (AUTO) 61.3 % (45.0-75.0); PLATELET COUNT 130 K/UL (150-450); RED BLOOD COUNT 3.43 M/UL (4.20-5.40); RED CELL DISTRIBUTION WIDTH 13.7 % (11.6-14.8); WHITE BLOOD COUNT 5.2 K/UL (4.8-10.8)
[2018-01-22 05:42] LABS: ANION GAP 6 mmol/L (5-15); BLOOD UREA NITROGEN 9 mg/dL (7-18); CALCIUM 8.1 MG/DL (8.5-10.1); CARBON DIOXIDE 27 MMOL/L (21-32); CHLORIDE 106 MMOL/L (98-107); CREATININE 0.9 MG/DL (0.55-1.30); POTASSIUM 3.8 MMOL/L (3.5-5.1); SODIUM 139 MMOL/L (136-145)
[2018-01-22 05:53] LABS: ALANINE AMINOTRANSFERASE 14 U/L (12-78); ALBUMIN 2.6 G/DL (3.4-5.0); ALBUMIN/GLOBULIN RATIO 0.6 (1.0-2.7); ALKALINE PHOSPHATASE 87 U/L (46-116); ASPARTATE AMINO TRANSFERASE 19 U/L (15-37); BILIRUBIN,TOTAL 0.8 MG/DL (0.2-1.0); CKMB 0.6 NG/ML (0.0-3.6); CREATINE KINASE 124 U/L (26-308)
[2018-01-22] MEDS ORDERED: Morphine Sulfate 2mg/ml Inj(IV/IM USE ONLY) IVP ONE (07:45)
--- NOTE | 2018-01-22 09:43 | GI Initial Consult Note ---
History of Present Illness General Date patient seen: Jan 22, 2018 Time patient seen: 10:00 Reason for Hospitalization: Chest Pain Referring physician: ANDIE KLINE Reason for Consultation: ABDOMINAL PAIN Present Illness HPI Patient present with complaints of mid epigastric pain was some discomfort in the midsternal area as well describes as a cramping sensation onset for 3-4 hours now Denies any vomiting or diarrhea denies any back or flank pain denies any dysuria frequency Patient has history of cirrhosis and liver disease Along with bipolar disorder Denies any recent fall or trauma GI consulted for abdominal pain. Pt known to us from clinic, has history of depression, hypertension, comorbid obesity, and history of cirrhosis. Had abdominal U/S back in jun 2017 noted with cirrhosis and varices. Colonoscopy performed in 2015 noted with colonic polyps. History of Hep C s/p treatment. The patient presents today with severe epigastric pain vs chest pain and diffused abdominal pain in all quadrants. Labs reviewed; no leukocytosis, mild anemia. Home Meds Active Scripts Clonidine Hcl* (CATAPRES*) 0.1 Mg Tablet, 0.1 MG ORAL EVERY 8 HOURS for systolic blood pressure >160, #30 TAB Prov:EVAN BORRERO M.D. 07/25/17 Hydrochlorothiazide* (HYDROCHLOROTHIAZIDE*) 25 Mg Tablet, 25 MG ORAL DAILY, #30 TAB Prov:EVAN BORRERO M.D. 07/25/17 Reported Medications Potassium Chloride (POTASSIUM CHLORIDE) 8 Meq Capsule.er, PO, CAP 01/22/18 Hydrocodone Bit/Acetaminophen 7.5-325* (NORCO 7.5-325*) 1 Each Tablet, 1 TAB ORAL Q6H PRN for For Pain, #30 TAB 0 Refills 01/22/18 Dulaglutide (Trulicity) 0.75 Mg/0.5 Ml Pen.injctr, SQ, EA 01/22/18 Lisinopril (LISINOPRIL*) 5 Mg Tablet, ORAL DAILY, TAB 01/22/18 Zolpidem Tartrate* (AMBIEN*) 10 Mg Tablet, 10 MG ORAL HS PRN for Insomnia, TAB 01/15/18 Clonazepam* (KLONOPIN*) 1 Mg Tablet, 2 MG ORAL Q6H PRN for For Anxiety, #90 TAB 0 Refills 01/15/18 Aripiprazole* (ABILIFY*) 10 Mg Tablet, 10 MG ORAL DAILY, TAB 08/07/17 Ibuprofen* (MOTRIN*) 600 Mg Tablet, 800 MG ORAL bid, #30 TAB 0 Refills 11/08/16 Duloxetine Hcl* (CYMBALTA*) 30 Mg Capsule.dr, 120 MG ORAL DAILY, CAP 06/13/16 Folic Acid* (FOLIC ACID*) 1 Mg Tablet, 1 MG ORAL DAILY, TAB 06/05/16 Discontinued Reported Medications Alprazolam* (XANAX*) 1 Mg Tablet, 1 MG ORAL Q4H PRN for For Anxiety, #120 TAB 01/01/18 Carisoprodol (SOMA) 250 Mg Tablet, 350 MG PO tid for sleep, #30 TAB 0 Refills 06/02/17 Med list reviewed/reconciled: Yes Allergies: Coded Allergies: ASPIRIN (Verified Allergy, Unknown, 01/22/18) EPHEDRINE (Unverified Allergy, Unknown, 01/22/18) HEPARIN ANALOGUES (Verified Allergy, Unknown, 01/22/18) unknown reaction. IBUPROFEN (Verified Allergy, Unknown, UPSET STOMACH/ RASH, 01/22/18) Patient History PMH Narrative Past Medical History: No History, Except For Hx Cardiac Problems: No - Hep C Hx Hypertension: Yes Hx Asthma: Yes Hx Diabetes: Yes Hx Cancer: No Hx Gastrointestinal Problems: Yes - Esophageal varices, Cirrhosis Hx Neurological Problems: No Hx Peripheral Neuropathy: Yes Hx Concentration Difficulty: Yes Hx Dizziness: Yes Hx Headaches: Yes Hx Numbness: Yes - upper and lower extremities Hx Weakness: Yes Hx Fatigue: Yes Social History: Denies: smoking, alcohol use, drug use, other Review of Systems All Other Systems: negative except mentioned in HPI Physical Exam Vital Signs Date Time Temp Pulse Resp B/P (MAP) Pulse Ox O2 Delivery O2 Flow Rate FiO2 01/22/18 04:40 98.1 55 16 121/87 96 Room Air 98.1 Sp02 EP Interpretation: reviewed, normal Labs Laboratory Tests Test 01/22/18 05:11 01/22/18 06:07 White Blood Count 5.2 K/UL (4.8-10.8) Red Blood Count 3.43 M/UL (4.20-5.40) L Hemoglobin 10.4 G/DL (12.0-16.0) L Hematocrit 32.1 % (37.0-47.0) L Mean Corpuscular Volume 94 FL (80-99) Mean Corpuscular Hemoglobin 30.5 PG (27.0-31.0) Mean Corpuscular Hemoglobin Concent 32.5 G/DL (32.0-36.0) Red Cell Distribution Width 13.7 % (11.6-14.8) Platelet Count 130 K/UL (150-450) L Mean Platelet Volume 7.0 FL (6.5-10.1) Neutrophils (%) (Auto) 61.3 % (45.0-75.0) Lymphocytes (%) (Auto) 22.3 % (20.0-45.0) Monocytes (%) (Auto) 11.5 % (1.0-10.0) H Eosinophils (%) (Auto) 4.0 % (0.0-3.0) H Basophils (%) (Auto) 0.9 % (0.0-2.0) Sodium Level 139 MMOL/L (136-145) Potassium Level 3.8 MMOL/L (3.5-5.1) Chloride Level 106 MMOL/L (98-107) Carbon Dioxide Level 27 MMOL/L (21-32) Anion Gap 6 mmol/L (5-15) Blood Urea Nitrogen 9 mg/dL (7-18) Creatinine 0.9 MG/DL (0.55-1.30) Estimat Glomerular Filtration Rate > 60 mL/min (>60) Glucose Level 148 MG/DL (74-106) H Calcium Level 8.1 MG/DL (8.5-10.1) L Total Bilirubin 0.8 MG/DL (0.2-1.0) Aspartate Amino Transf (AST/SGOT) 19 U/L (15-37) Alanine Aminotransferase (ALT/SGPT) 14 U/L (12-78) Alkaline Phosphatase 87 U/L (46-116) Total Creatine Kinase 124 U/L (26-308) Creatine Kinase MB 0.6 NG/ML (0.0-3.6) Creatine Kinase MB Relative Index 0.4 Troponin I 0.000 ng/mL (0.000-0.056) Total Protein 7.3 G/DL (6.4-8.2) Albumin 2.6 G/DL (3.4-5.0) L Globulin 4.7 g/dL Albumin/Globulin Ratio 0.6 (1.0-2.7) L Ammonia 69 umol/L (11-32) H General Appearance: well appearing, no apparent distress, alert, obese Head: normocephalic EENT: PERRL/EOMI, normal ENT inspection Neck: supple Respiratory: normal breath sounds, no respiratory distress Cardiovascular: normal rate Gastrointestinal: normal inspection, non tender, soft, normal bowel sounds, non -distended Rectal: deferred Genitourinary: no CVA tenderness Musculoskeletal: normal inspection, back normal Neurologic: normal inspection, alert, oriented x3, responsive Psychiatric: normal inspection, judgement/insight normal, memory normal Skin: normal inspection, normal color, no rash, warm/dry, palpation normal, well hydrated Lymphatic: normal inspection, no adenopathy Current Medications Current Medications Medications (Trade) Dose Ordered Sig/Chani Route PRN Reason Start Time Stop Time Status Last Admin Dose Admin Lactulose (Cephulac) 20 gm BID ORAL 01/22/18 09:30 02/21/18 09:29 Rifaximin (Xifaxan) 550 mg EVERY 12 HOURS ORAL 01/22/18 10:00 01/29/18 09:59 GI: Plan Problems: (1) Esophageal varices (2) Cirrhosis (3) Anxiety (4) Abdominal pain, generalized (5) elevated ammonia (6) ACS (acute coronary syndrome) (7) Diabetes Plan elevated CA19-9 2015 colonoscopy x 3 polyps history of cirrhosis s/p Hep C tx abdominal pain elevated ammonia levels NPO for abdominal U/S, okay for diet after EGD to be scheduled for tomorrow given history of cirrhosis and varices vs abdominal pain - diet per RD now, NPO @ [facility]. - hold all blood thinners simethicone prn titrate lactulose, add xifaxan anemia work up OB stool r/o GI bleed monitor H&H, prn transfusions bowel regime ppi fu labs will follow with complete note Discussed with Dr. Minor. Thank you for this patient referral, we will follow. The patient was seen and examined at bedside and all new and available data was reviewed in the patients chart. I agree with the above findings, impression and plan. (Patient seen earlier today. Signature stamp does not reflect patient encounter time.). - MD [facility] DATABASE PROGRAMMER ANALYST Jan 22, 2018 09:43
[2018-01-22] MEDS ORDERED: Miralax 17gm pkt ORAL PRN (10:00)
[2018-01-22] MEDS ORDERED: Simethicone 80mg tab ORAL PRN (10:00)
[2018-01-22] MEDS ORDERED: HYDROcodone/Acetamin 7.5/325 tab ORAL PRN (11:00)
--- NOTE | 2018-01-22 11:33 | Diagnostic Imaging Report ---
Indication: Chest pain Comparison: 01/03/2017 A single view chest radiograph was obtained. Findings: Cardiomediastinal appearance is within normal limits for age. Pulmonary vascularity is appropriate. The diaphragmatic contour is smooth and costophrenic angles are sharp. No pleural effusions are identified. The bones are unremarkable. Impression: No acute findings
[2018-01-22] MEDS: Lactulose 20gm/30ml UDC ORAL SCH ×2 (12:43→18:19)
[2018-01-22] MEDS: Pantoprazole Inj IV SCH (12:44)
[2018-01-22] MEDS: Morphine Sulfate 2mg/ml Inj(IV/IM USE ONLY) IVP PRN ×3 (12:45→21:41)
--- NOTE | 2018-01-22 14:08 | Diagnostic Imaging Report ---
Indication:Abdominal pain Technique: Grayscale and duplex Doppler imaging of the abdomen performed. Comparison: 06/30/2017 Findings: Similar findings compared to the prior study. Gallstones are demonstrated. The demonstrated part of the pancreas is unremarkable. Heterogeneity of the liver with surface nodularity, portosystemic varices and splenomegaly are again noted. The liver is enlarged measuring 19 cm. There is no ascites. Aorta is not well seen distally. There is reversed flow within the portal vein. CBD is 6 mm. IMPRESSION: No change compared to the prior study. Chronic disease. Chronic liver disease/cirrhosis with stigmata of portal hypertension including splenomegaly and portosystemic varices, reverse flow in the portal vein. Cholelithiasis.
--- NOTE | 2018-01-22 17:17 | History and Physical Report ---
DATE OF ADMISSION: 01/22/2018 REASON FOR ADMISSION: Possible acute coronary syndrome. HISTORY OF PRESENT ILLNESS: This is a 67-year-old female, who presents with right chest pain. The patient notes that the pain is also epigastric in nature, but midsternal, and also crampy phenomenon. The patient denies any nausea or vomiting. The patient does have history of cirrhosis and liver disease. The patient also has significant history of bipolar disease. The patient is a fair historian. No shortness of breath. No radiation of pain. No falls. No chest pain from trauma. The patient is now seen and evaluated in the emergency room. The patient is admitted for ongoing care and management and serial troponins. X-ray is essentially negative. EKG without any acute changes. PAST MEDICAL HISTORY: Notable for esophageal varices, cirrhosis, and hepatitis C. The patient also with history of peripheral neuropathy and bipolar disorder. MEDICATIONS: Reviewed. ALLERGIES: Reviewed. SOCIAL HISTORY: Currently, nonsmoker and nondrinker. The patient is disabled. REVIEW OF SYSTEMS: All 10-points reviewed and otherwise negative. PHYSICAL EXAMINATION: GENERAL: A well-developed female, comfortable. VITAL SIGNS: Blood pressure 91/64, pulse 50, temperature 98.1, respirations 21, and sats 97%. HEENT: Negative. NECK: Supple. No adenopathy. LUNGS: Good air entry. Symmetric. No rhonchi. No wheezing. CARDIAC: S1 and S2. Regular rate and rhythm. Slightly bradycardic. ABDOMEN: Soft, nontender, and nondistended. EXTREMITIES: No cyanosis or clubbing. No significant edema. NEUROLOGICALLY: Grossly nonfocal. LABORATORY DATA: Reviewed. IMPRESSION: 1. Hypertension. 2. Possible acute coronary syndrome. 3. Bipolar disorder. 4. Chronic pain syndrome. 5. Chronic neuropathy. 6. Evidence of anemia. 7. Severe protein-calorie malnutrition. RECOMMENDATIONS: 1. Supportive care. 2. Serial troponins. 3. Cardiology evaluation. 4. Resume medication. 5. Consider GI evaluation. 6. Monitor pain levels and provide hydrocodone. 7. Discharge when the patient is stable and cleared by all. Bryan Dale M.D. DR: DILCIA JOB#: [id number] CC:
--- NOTE | 2018-01-22 19:12 | Cardiology Progress Note ---
Assessment/Plan Assessment/Plan The patient is seen and examined, full consult note will be dictated. Objective Last 24 Hour Vital Signs Date Time Temp Pulse Resp B/P (MAP) Pulse Ox O2 Delivery O2 Flow Rate FiO2 01/22/18 15:32 52 01/22/18 12:00 97.0 54 20 135/51 (79) 98 97.0 01/22/18 11:55 54 01/22/18 10:21 Room Air 01/22/18 09:13 51 01/22/18 08:50 96.9 57 19 121/72 (88) 94 96.9 01/22/18 08:45 98.1 50 21 90/51 97 Room Air 98.1 01/22/18 08:20 97.7 50 21 90/51 97 Room Air 97.7 01/22/18 08:20 98.1 01/22/18 07:46 98.1 01/22/18 06:52 98.1 50 21 91/64 97 Room Air 98.1 01/22/18 05:20 98.1 53 13 88/49 97 Room Air 98.1 01/22/18 04:42 98.1 58 16 121/87 96 Room Air 98.1 01/22/18 04:40 98.1 55 16 121/87 96 Room Air 98.1 Intake and Output 01/21/18 01/22/18 19:00 07:00 Intake Total 30 ml Balance 30 ml Intake Oral 30 ml Laboratory Tests Test 01/22/18 05:11 01/22/18 06:07 White Blood Count 5.2 K/UL (4.8-10.8) Red Blood Count 3.43 M/UL (4.20-5.40) L Hemoglobin 10.4 G/DL (12.0-16.0) L Hematocrit 32.1 % (37.0-47.0) L Mean Corpuscular Volume 94 FL (80-99) Mean Corpuscular Hemoglobin 30.5 PG (27.0-31.0) Mean Corpuscular Hemoglobin Concent 32.5 G/DL (32.0-36.0) Red Cell Distribution Width 13.7 % (11.6-14.8) Platelet Count 130 K/UL (150-450) L Mean Platelet Volume 7.0 FL (6.5-10.1) Neutrophils (%) (Auto) 61.3 % (45.0-75.0) Lymphocytes (%) (Auto) 22.3 % (20.0-45.0) Monocytes (%) (Auto) 11.5 % (1.0-10.0) H Eosinophils (%) (Auto) 4.0 % (0.0-3.0) H Basophils (%) (Auto) 0.9 % (0.0-2.0) Sodium Level 139 MMOL/L (136-145) Potassium Level 3.8 MMOL/L (3.5-5.1) Chloride Level 106 MMOL/L (98-107) Carbon Dioxide Level 27 MMOL/L (21-32) Anion Gap 6 mmol/L (5-15) Blood Urea Nitrogen 9 mg/dL (7-18) Creatinine 0.9 MG/DL (0.55-1.30) Estimat Glomerular Filtration Rate > 60 mL/min (>60) Glucose Level 148 MG/DL (74-106) H Calcium Level 8.1 MG/DL (8.5-10.1) L Total Bilirubin 0.8 MG/DL (0.2-1.0) Aspartate Amino Transf (AST/SGOT) 19 U/L (15-37) Alanine Aminotransferase (ALT/SGPT) 14 U/L (12-78) Alkaline Phosphatase 87 U/L (46-116) Total Creatine Kinase 124 U/L (26-308) Creatine Kinase MB 0.6 NG/ML (0.0-3.6) Creatine Kinase MB Relative Index 0.4 Troponin I 0.000 ng/mL (0.000-0.056) Total Protein 7.3 G/DL (6.4-8.2) Albumin 2.6 G/DL (3.4-5.0) L Globulin 4.7 g/dL Albumin/Globulin Ratio 0.6 (1.0-2.7) L Ammonia 69 umol/L (11-32) H Bob Valdez MD Jan 22, 2018 19:12
[2018-01-22] MEDS ORDERED: Zolpidem 5mg tab ORAL PRN (21:00)
[2018-01-22] MEDS: Miralax 17gm pkt ORAL SCH (21:00)
[2018-01-22] MEDS: Docusate 100mg cap ORAL SCH (21:29)
[2018-01-23] VITALS (11 sets, daily range): BP systolic 127–167; BP diastolic 44–81
--- NOTE | 2018-01-23 00:17 | Consultation ---
DATE OF CONSULTATION: 01/22/2018 CARDIOLOGY CONSULTATION CONSULTING PHYSICIAN: Bob Valdez M.D. REFERRING PHYSICIAN: Bryan Dale M.D. REASON FOR CONSULTATION: Management of chest pain. HISTORY OF PRESENT ILLNESS: The patient is a very pleasant 67-year-old lady, who presents to the hospital with complaints of chest pain which is described as mid sternal, pressure-like, nonradiating, and non-provoked associated with shortness of breath that lasted for few hours. The patient also had some associated crampy abdominal and epigastric pain. She states that she has esophageal varices and she is worried that this pain is something related to this diagnosis. She had a blood pressure of 121/87 mmHg on arrival to the hospital, heart rate was 55 beats per minute. A 12-lead electrocardiogram on arrival to this facility showed sinus bradycardia, rate of [address] and T-wave abnormalities, normal QT interval. The patient was admitted to telemetry for further evaluation and management. Cardiology consultation was made at request of Dr. Dale to address chest pain and shortness of breath. The patient states that she has dyspnea on exertion as well as lower extremity edema for sometime. She takes diuretic on a daily basis. PAST MEDICAL HISTORY: 1. History of hepatitis C virus infection, which she claims that it is cured with recent treatment under care of Dr. Minor. 2. Hypertension. 3. Asthma. 4. Diabetes mellitus. 5. History of esophageal varices. 6. History of liver cirrhosis. 7. History of peripheral neuropathy. 8. History of cognitive impairment. 9. History of headaches. 10. History of neuropathy. 11. History of fatigue. MEDICATIONS: List of medication includes: 1. Abilify 10 mg p.o. at bedtime daily. 2. Klonopin 2 mg q. 6 h p.r.n. anxiety. 3. Catapres 0.1 mg q. 8 h hours for systolic blood pressure above 160 mmHg. 4. Trulicity 0.75 mg subcutaneous every 2 weeks. 5. Cymbalta 120 mg p.o. daily. 6. Folic acid 1 mg p.o. daily. 7. Hydrochlorothiazide 25 mg p.o. daily. 8. Ward 7.5/325 one tablet q.6 h. p.r.n. pain. 9. Motrin 800 mg twice daily. 10. Lisinopril 5 mg p.o. daily. 11. Potassium chloride mEq p.o. daily. 12. Ambien 10 mg p.o. at bedtime p.r.n. insomnia. ALLERGIES: Aspirin, epinephrine, heparin, and ibuprofen. 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 Denies any alcohol or tobacco at this time. REVIEW OF SYSTEMS: HEENT: Denies any headache, diplopia, or blurred vision at this time. CONSTITUTIONAL: Complains of generalized weakness, but no fever, chills, or night sweats. CARDIOVASCULAR: Chest pain as mentioned above. Shortness of breath with overloading activities. Denies any PND or orthopnea but has bilateral lower extremity edema. Denies any syncope or palpitation. PULMONARY: Denies any cough, hemoptysis, or wheezing. GASTROINTESTINAL: Epigastric pain, crampy as mentioned above. Denies any diarrhea, constipation, or GI bleed. She has history of esophageal varices. GENITOURINARY: Denies any hematuria, dysuria, incontinence. NEUROLOGIC: Denies any motor dysfunction, sensory deficit, or altered speech. MUSCULOSKELETAL: Bilateral lower extremity edema reported. PHYSICAL EXAMINATION: VITAL SIGNS: Blood pressure was 121/87, respirations 16, pulse of 55, O2 saturation 96% on room air, and temperature 98.1 degrees Fahrenheit. GENERAL: The patient is a very unfortunate 67-year-old morbidly obese lady, who is in no apparent respiratory distress. HEENT: Atraumatic and normocephalic. Anicteric. Pupils are equal, round, and reactive to light and accommodation. Extraocular muscles intact. NECK: JVP less than 5 cm. No carotid bruit. Carotid upstrokes 2+ bilaterally. CARDIOVASCULAR: Normal S1 and S2. Regular rate and rhythm. No murmurs, gallops, or rubs. PMI is at fourth intercostal space in the midclavicular line. LUNGS: Clear to auscultation bilaterally. ABDOMEN: Soft, nontender, and nondistended. No hepatosplenomegaly. Positive bowel sounds. EXTREMITIES: No evidence of edema, clubbing, or cyanosis. LABORATORY AND DIAGNOSTIC DATA: Sodium 139, potassium 3.8, chloride 106, bicarbonate 27, BUN of 9, creatinine 0.9 glucose 148, calcium is 8.1. Troponin-I is 0.00. WBC 5.2, hemoglobin 10.4, hematocrit 32.1, and platelet count 130. A 12-lead electrocardiogram, sinus bradycardia, rate of [address] and T-wave abnormalities, no evidence of acute ischemic features. Chest x-ray with no acute cardiopulmonary disease. ASSESSMENT AND PLAN: The patient is a very unfortunate 67-year-old female, seen in Cardiology consultation at request of Dr. Dale. 1. Most likely noncardiac chest pain. First troponin I level is negative. A 12-lead electrocardiogram does not show any acute ischemic changes. We will obtain 2D echocardiography for assessment of LV systolic function. This study will also help with the diastolic function as well which will be used for hemodynamic management. 2. Further therapeutic and diagnostic decision will be based on results of the above study at this point. Risk factors for coronary artery disease considered to be diabetes mellitus as well as hypertension, fasting lipid panel will be done in a.m. 3. Morbid obesity. 4. History of hepatitis C virus infection, status post treatment. 5. History of liver cirrhosis/esophageal varices. Dr. Minor input would be appreciated. 6. History of diabetes mellitus. If there is no contraindication, then the patient will benefit from aspirin and statins. 7. History of hypertension. I would agree with hydrochlorothiazide. At this time, clonidine as needed is ordered. Most recent blood pressure within normal limits. I would like to thank, Dr. Dale, for allowing me to participate in care of this patient. Bob Valdez M.D. DR: Ayush JOB#: [id number] CC:
[2018-01-23 08:37] LABS: BASOPHILS % (AUTO) 1.1 % (0.0-2.0); EOSINOPHILS % (AUTO) 2.1 % (0.0-3.0); HEMATOCRIT 31.9 % (37.0-47.0); HEMOGLOBIN 10.5 G/DL (12.0-16.0); LYMPHOCYTES % (AUTO) 19.2 % (20.0-45.0); MEAN CORPUSCULAR VOLUME 92 FL (80-99); MONOCYTES % (AUTO) 7.9 % (1.0-10.0); NEUTROPHILS % (AUTO) 69.7 % (45.0-75.0); PLATELET COUNT 120 K/UL (150-450); RED BLOOD COUNT 3.45 M/UL (4.20-5.40); RED CELL DISTRIBUTION WIDTH 13.7 % (11.6-14.8); WHITE BLOOD COUNT 5.2 K/UL (4.8-10.8)
[2018-01-23 08:57] LABS: INR 1.2 (0.9-1.1)
[2018-01-23 09:13] LABS: ANION GAP 7 mmol/L (5-15); BLOOD UREA NITROGEN 9 mg/dL (7-18); CALCIUM 8.5 MG/DL (8.5-10.1); CARBON DIOXIDE 28 MMOL/L (21-32); CHLORIDE 105 MMOL/L (98-107); CREATININE 0.7 MG/DL (0.55-1.30); POTASSIUM 3.8 MMOL/L (3.5-5.1); SODIUM 140 MMOL/L (136-145)
--- NOTE | 2018-01-23 09:53 | Anethesia Preoperative Eval ---
Anesthesia Pre-op PMH/ROS General Date of Evaluation: Jan 23, 2018 Time of Evaluation: 09:50 Anesthesiologist: lili ASA Score: ASA 3 Mallampati Score Class I : Soft palate, uvula, fauces, pillars visible Class II: Soft palate, uvula, fauces visible Class III: Soft palate, base of uvula visible Class IV: Only hard plate visible Mallampati Classification: Class III Surgeon: brian Diagnosis: abd pain Surgical Procedure: EGD Anesthesia History: none Social History: alcohol use Family History: no anesthesia problems Allergies: Coded Allergies: ASPIRIN (Verified Allergy, Unknown, 01/22/18) EPHEDRINE (Unverified Allergy, Unknown, 01/22/18) HEPARIN ANALOGUES (Verified Allergy, Unknown, 01/22/18) unknown reaction. IBUPROFEN (Verified Allergy, Unknown, UPSET STOMACH/ RASH, 01/22/18) Medications: see eMAR Past Medical History Cardiovascular: Reports: HTN, CAD Pulmonary: Reports: asthma Gastrointestinal/Genitourinary: Reports: GERD, other - cirrhosis; Denies: CRI, ESRD Neurologic/Psychiatric: Reports: depression/anxiety; Denies: dementia, CVA, TIA, other Endocrine: Denies: DM, hypothyroidism, steroids, other HEENT: Denies: cataract (L), cataract (R), glaucoma, [place] (L), [place] (R), other Hematology/Immune: Reports: anemia, bleeding disorder Other: obesity PSxH Narrative: unknown Anesthesia Pre-op Phys. Exam Physician Exam Last Vital Signs Date Time Temp Pulse Resp B/P (MAP) Pulse Ox O2 Delivery O2 Flow Rate FiO2 01/23/18 04:00 96.3 60 19 132/66 (88) 96 96.3 01/22/18 21:00 Room Air Constitutional: NAD Neurologic: CN 2-12 intact Cardiovascular: RRR Respiratory: CTA Gastrointestinal: S/NT/ND Airway Exam Mallampati Score: Class III MO: limited Neck: thick TMD: 2fb Teeth: missing Dentures: no upper, no lower Anesthesia Pre-op A/P Labs Hematology Test 01/23/18 08:00 White Blood Count 5.2 K/UL (4.8-10.8) Red Blood Count 3.45 M/UL (4.20-5.40) L Hemoglobin 10.5 G/DL (12.0-16.0) L Hematocrit 31.9 % (37.0-47.0) L Mean Corpuscular Volume 92 FL (80-99) Mean Corpuscular Hemoglobin 30.4 PG (27.0-31.0) Mean Corpuscular Hemoglobin Concent 32.9 G/DL (32.0-36.0) Red Cell Distribution Width 13.7 % (11.6-14.8) Platelet Count 120 K/UL (150-450) L Mean Platelet Volume 8.2 FL (6.5-10.1) Neutrophils (%) (Auto) 69.7 % (45.0-75.0) Lymphocytes (%) (Auto) 19.2 % (20.0-45.0) L Monocytes (%) (Auto) 7.9 % (1.0-10.0) Eosinophils (%) (Auto) 2.1 % (0.0-3.0) Basophils (%) (Auto) 1.1 % (0.0-2.0) Coagulation Test 01/23/18 08:00 Prothrombin Time 12.2 SEC (9.30-11.50) H Prothromb Time International Ratio 1.2 (0.9-1.1) H Activated Partial Thromboplast Time 30 SEC (23-33) Chemistry Test 01/22/18 19:15 01/23/18 08:00 Troponin I 0.000 ng/mL (0.000-0.056) 0.000 ng/mL (0.000-0.056) Sodium Level 140 MMOL/L (136-145) Potassium Level 3.8 MMOL/L (3.5-5.1) Chloride Level 105 MMOL/L (98-107) Carbon Dioxide Level 28 MMOL/L (21-32) Anion Gap 7 mmol/L (5-15) Blood Urea Nitrogen 9 mg/dL (7-18) Creatinine 0.7 MG/DL (0.55-1.30) Estimat Glomerular Filtration Rate > 60 mL/min (>60) Glucose Level 110 MG/DL (74-106) H Calcium Level 8.5 MG/DL (8.5-10.1) Studies Pre-op Studies: EKG - sr Risk Assessment & Plan Plan: mac Status Change Before Surgery: No Pre-Antibiotics Drug: none Tarrillion,Kimberly Meyer CUSTOMER SERVICES SUPERVISOR Jan 23, 2018 09:53
[2018-01-23] MEDS ORDERED: LR 1000ml ONE (10:00)
[2018-01-23] MEDS ORDERED: Lidocaine 1% MPF 10mg/ml 5ml ONE (10:00)
[2018-01-23] MEDS ORDERED: Propofol 200mg/20ml IV ONE (10:00)
[2018-01-23] MEDS ORDERED: NS 500ML IVPB ONE (10:00)
--- NOTE | 2018-01-23 10:07 | Pre-Procedure Note/Attestation ---
Pre-Procedure Note/Attestation Complete Prior to Procedure Planned Procedure: not applicable Procedure Narrative: egd Indications for Procedure Pre-Operative Diagnosis: abd pain Attestation I attest that I discussed the nature of the procedure; its benefits; risks and complications; and alternatives (and the risks and benefits of such alternatives ), prior to the procedure, with the patient (or the patient's legal quality control representative). I attest that, if there was a reasonable possibility of needing a blood transfusion, the patient (or the patient's legal quality control representative) was given the [facility] standardized written summary, pursuant to the [place] Blood Safety Act ([place] Health and Safety Code # 1645, as amended). I attest that I re-evaluated the patient just prior to the surgery and that there has been no change in the patient's H&P, except as documented below: Ashutosh Minor MD Jan 23, 2018 10:07
--- NOTE | 2018-01-23 10:20 | Endoscopy Procedure Note ---
Endoscopy Procedure Note General Indication for Procedure: abd pain, cirrhosis Procedures Performed: EGD Operative Findings/Diagnosis: varices Specimen: yes Pt Tolerated Procedure Well: Yes Estimated Blood Loss: none Anesthesia Anesthesiologist: claudia Anesthesia: MAC Inserted Devices Implant(s) used?: No GI Core Measures 50 yrs or older w/o bx or poly: Not Applicable 10yrs. F/U not recommended: Not Applicable Ashutosh Minor MD Jan 23, 2018 10:20
--- NOTE | 2018-01-23 10:37 | Immediate Post-Op Evaluation ---
Immediate Post-Op Evalulation Immediate Post-Op Evalulation Procedure: egd Date of Evaluation: Jan 23, 2018 Time of Evaluation: 10:25 IV Fluids: 200 Blood Pressure Systolic: 147 Blood Pressure Diastolic: 75 Pulse Rate: 76 Respiratory Rate: 14 O2 Sat by Pulse Oximetry: 98 Temperature (Fahrenheit): 97.1 Pain Score (1-10): 0 Nausea: No Vomiting: No Complications none Patient Status: awake, reacts, patent Hydration Status: adequate Drug: Kimberly Elizabeth CRNA Jan 23, 2018 10:37
--- NOTE | 2018-01-23 10:38 | 48 Hour Post Anesthesia Eval ---
Post Anesthesia Evaluation Procedure: egd Date of Evaluation: Jan 23, 2018 Time of Evaluation: 10:37 Blood Pressure Systolic: 150 0: 70 Pulse Rate: 70 Respiratory Rate: 14 O2 Sat by Pulse Oximetry: 98 Airway: patent Nausea: No Vomiting: No Hydration Status: adequate Cardiopulmonary Status: stable Mental Status/LOC: patient returned to baseline Follow-up Care/Observations: na Post-Anesthesia Complications: none Follow-up care needed: N/A Kimberly Jimenez CRNA Jan 23, 2018 10:38
[2018-01-23] MEDS: DULoxetine 30mg cap ORAL SCH (11:10)
[2018-01-23] MEDS: Docusate 100mg cap ORAL SCH ×2 (11:11→21:00)
[2018-01-23] MEDS: ARIPiprazole 10mg tab ORAL SCH (11:12)
[2018-01-23] MEDS: Lisinopril 2.5mg tab ORAL SCH (11:12)
[2018-01-23] MEDS: Pantoprazole Inj IV SCH (11:13)
[2018-01-23] MEDS: Lactulose 20gm/30ml UDC ORAL SCH ×2 (11:14→18:42)
--- NOTE | 2018-01-23 11:19 | General Progress Note ---
Assessment/Plan Assessment/Plan IMPRESSION: 1. Hypertension. 2. Possible acute coronary syndrome. 3. Bipolar disorder. 4. Chronic pain syndrome. 5. Chronic neuropathy. 6. Evidence of anemia. 7. Severe protein-calorie malnutrition. PLAN continue same seen earlier EGD noted cards clearance to home impression, plan, and exam edited and reviewed in detail care discussed with RN await echo Subjective Allergies: Coded Allergies: ASPIRIN (Verified Allergy, Unknown, 01/22/18) EPHEDRINE (Unverified Allergy, Unknown, 01/22/18) HEPARIN ANALOGUES (Verified Allergy, Unknown, 01/22/18) unknown reaction. IBUPROFEN (Verified Allergy, Unknown, UPSET STOMACH/ RASH, 01/22/18) Subjective PENDING EGD AND COLON NO CP CARDS AND GI APPRECIATED Objective Last 24 Hour Vital Signs Date Time Temp Pulse Resp B/P (MAP) Pulse Ox O2 Delivery O2 Flow Rate FiO2 01/23/18 11:12 147/72 01/23/18 10:41 98.0 72 18 152/78 100 Room Air 98.0 01/23/18 10:38 70 14 98 01/23/18 10:37 206.8 76 14 98 01/23/18 10:32 74 18 148/71 100 Nasal Cannula 3 01/23/18 10:27 74 16 164/74 100 Nasal Cannula 3 01/23/18 10:22 97.9 76 14 147/65 100 Nasal Cannula 3 97.9 01/23/18 08:00 70 01/23/18 04:00 96.3 60 19 132/66 (88) 96 96.3 01/23/18 04:00 74 01/23/18 00:00 73 01/23/18 00:00 96.6 69 18 127/62 (83) 96 96.6 01/22/18 21:00 Room Air 01/22/18 20:00 62 01/22/18 20:00 97.5 66 18 135/71 (92) 98 97.5 01/22/18 15:32 52 01/22/18 12:00 97.0 54 20 135/51 (79) 98 97.0 01/22/18 11:55 54 Intake and Output 01/22/18 01/23/18 19:00 07:00 # Voids 2 # Bowel Movements 1 Laboratory Tests 01/22/18 19:15: Troponin I 0.000 01/23/18 08:00: Troponin I 0.000, White Blood Count 5.2, Red Blood Count 3.45L, Hemoglobin 10.5L , Hematocrit 31.9L, Mean Corpuscular Volume 92, Mean Corpuscular Hemoglobin 30.4 , Mean Corpuscular Hemoglobin Concent 32.9, Red Cell Distribution Width 13.7, Platelet Count 120L, Mean Platelet Volume 8.2, Neutrophils (%) (Auto) 69.7, Lymphocytes (%) (Auto) 19.2L, Monocytes (%) (Auto) 7.9, Eosinophils (%) (Auto) 2.1, Basophils (%) (Auto) 1.1, Prothrombin Time 12.2H, Prothromb Time International Ratio 1.2H, Activated Partial Thromboplast Time 30, Sodium Level 140, Potassium Level 3.8, Chloride Level 105, Carbon Dioxide Level 28, Anion Gap 7, Blood Urea Nitrogen 9, Creatinine 0.7, Estimat Glomerular Filtration Rate > 60, Glucose Level 110H, Calcium Level 8.5 Height (Feet): 5 Height (Inches): 3.00 Weight (Pounds): 280 Objective WDWN NAD clear breath sounds bilaterally without rhonchi or wheeze [id number] without MRG NABS nontender no HSM no CCE nonfocal obese Bryan Dale MD Jan 23, 2018 11:19
--- NOTE | 2018-01-23 12:16 | Procedure Note ---
DATE OF PROCEDURE: 01/23/2018 SURGEON: Ashutosh Minor M.D. ANESTHESIOLOGIST: Kimberly DURAN. PROCEDURE: Upper endoscopy with biopsy. ANESTHESIA: Per Kimberly DURAN. INSTRUMENT: Olympus adult flexible upper endoscope. INDICATION: Anemia, abdominal pain, history of esophageal varices. DESCRIPTION OF PROCEDURE: After informed consent was obtained and the patient was adequately sedated, Olympus upper endoscope was advanced from the mouth into the second portion of the duodenum and retroflexion was performed in the stomach. The patient had evidence of grade 2 distal esophageal varices without any stigmata. No banding was performed given it was small and grade 2. In the stomach, there was diffuse gastritis. Random biopsy from antrum was obtained to rule out H. pylori infection. Retroflexion of the stomach showed no obvious gastric varices. The patient tolerated the procedure very well without any complication. SUMMARY OF FINDINGS: 1. Grade 2 esophageal varices without any stigmata. 2. Gastritis, status post biopsy. RECOMMENDATIONS: Follow up biopsy results and treat accordingly. Ashutosh Minor M.D. DR: Korin JOB#: [id number] CC:
--- NOTE | 2018-01-23 12:59 | Cardiology Progress Note ---
Assessment/Plan Assessment/Plan 1. Most likely noncardiac chest pain. AMI is ruled out. A 12-lead electrocardiogram does not show any acute ischemic changes. 2. History of hepatitis C virus infection, status post treatment. 3. History of liver cirrhosis/esophageal varices. 4. History of diabetes mellitus. 5. History of hypertension, continue with hydrochlorothiazide. Subjective Subjective Sinus rhythm at 72. Objective Last 24 Hour Vital Signs Date Time Temp Pulse Resp B/P (MAP) Pulse Ox O2 Delivery O2 Flow Rate FiO2 01/23/18 11:12 147/72 01/23/18 10:41 98.0 72 18 152/78 100 Room Air 98.0 01/23/18 10:38 70 14 98 01/23/18 10:37 206.8 76 14 98 01/23/18 10:32 74 18 148/71 100 Nasal Cannula 3 01/23/18 10:27 74 16 164/74 100 Nasal Cannula 3 01/23/18 10:22 97.9 76 14 147/65 100 Nasal Cannula 3 97.9 01/23/18 09:00 Room Air 01/23/18 08:00 70 01/23/18 08:00 98.1 72 18 147/72 (97) 95 98.1 01/23/18 04:00 96.3 60 19 132/66 (88) 96 96.3 01/23/18 04:00 74 01/23/18 00:00 73 01/23/18 00:00 96.6 69 18 127/62 (83) 96 96.6 01/22/18 21:00 Room Air 01/22/18 20:00 62 01/22/18 20:00 97.5 66 18 135/71 (92) 98 97.5 01/22/18 15:32 52 Intake and Output 01/22/18 01/23/18 19:00 07:00 # Voids 2 # Bowel Movements 1 Laboratory Tests Test 01/22/18 19:15 01/23/18 08:00 Troponin I 0.000 ng/mL (0.000-0.056) 0.000 ng/mL (0.000-0.056) White Blood Count 5.2 K/UL (4.8-10.8) Red Blood Count 3.45 M/UL (4.20-5.40) L Hemoglobin 10.5 G/DL (12.0-16.0) L Hematocrit 31.9 % (37.0-47.0) L Mean Corpuscular Volume 92 FL (80-99) Mean Corpuscular Hemoglobin 30.4 PG (27.0-31.0) Mean Corpuscular Hemoglobin Concent 32.9 G/DL (32.0-36.0) Red Cell Distribution Width 13.7 % (11.6-14.8) Platelet Count 120 K/UL (150-450) L Mean Platelet Volume 8.2 FL (6.5-10.1) Neutrophils (%) (Auto) 69.7 % (45.0-75.0) Lymphocytes (%) (Auto) 19.2 % (20.0-45.0) L Monocytes (%) (Auto) 7.9 % (1.0-10.0) Eosinophils (%) (Auto) 2.1 % (0.0-3.0) Basophils (%) (Auto) 1.1 % (0.0-2.0) Prothrombin Time 12.2 SEC (9.30-11.50) H Prothromb Time International Ratio 1.2 (0.9-1.1) H Activated Partial Thromboplast Time 30 SEC (23-33) Sodium Level 140 MMOL/L (136-145) Potassium Level 3.8 MMOL/L (3.5-5.1) Chloride Level 105 MMOL/L (98-107) Carbon Dioxide Level 28 MMOL/L (21-32) Anion Gap 7 mmol/L (5-15) Blood Urea Nitrogen 9 mg/dL (7-18) Creatinine 0.7 MG/DL (0.55-1.30) Estimat Glomerular Filtration Rate > 60 mL/min (>60) Glucose Level 110 MG/DL (74-106) H Calcium Level 8.5 MG/DL (8.5-10.1) Objective HEENT: Atraumatic and normocephalic. Anicteric. Pupils are equal, round, and reactive to light and accommodation. Extraocular muscles intact. NECK: JVP less than 5 cm. No carotid bruit. Carotid upstrokes 2+ bilaterally. CARDIOVASCULAR: Normal S1 and S2. Regular rate and rhythm. No murmurs, gallops, or rubs. PMI is at fourth intercostal space in the midclavicular line. LUNGS: Clear to auscultation bilaterally. ABDOMEN: Soft, nontender, and nondistended. No hepatosplenomegaly. Positive bowel sounds. EXTREMITIES: No evidence of edema, clubbing, or cyanosis. Bob Valdez MD Jan 23, 2018 12:59
[2018-01-23] MEDS: Morphine Sulfate 2mg/ml Inj(IV/IM USE ONLY) IVP PRN ×2 (16:25→21:07)
[2018-01-23] MEDS: Miralax 17gm pkt ORAL SCH (21:00)
[2018-01-24] VITALS: BP 119/53
[2018-01-24] MEDS: Morphine Sulfate 2mg/ml Inj(IV/IM USE ONLY) IVP PRN (02:53)
[2018-01-24 04:00] VITALS: BP 121/63
[2018-01-24] MEDS ORDERED: Morphine Sulfate 4mg/ml Inj (IV USE ONLY) IVP PRN (07:45)
[2018-01-24 08:00] VITALS: BP 134/61
[2018-01-24] MEDS: Pantoprazole Inj IV SCH (09:28)
[2018-01-24] MEDS: DULoxetine 30mg cap ORAL SCH (09:29)
[2018-01-24 09:30] VITALS: BP 134/61
[2018-01-24] MEDS: Lisinopril 2.5mg tab ORAL SCH (09:30)
[2018-01-24] MEDS: Docusate 100mg cap ORAL SCH (09:31)
[2018-01-24] MEDS: Lactulose 20gm/30ml UDC ORAL SCH (09:32)
[2018-01-24] MEDS: ARIPiprazole 10mg tab ORAL SCH (09:33)
--- NOTE | 2018-01-24 09:37 | General Progress Note ---
Assessment/Plan Assessment/Plan IMPRESSION: 1. Hypertension. 2. Possible acute coronary syndrome. 3. Bipolar disorder. 4. Chronic pain syndrome. 5. Chronic neuropathy. 6. Evidence of anemia. 7. Severe protein-calorie malnutrition. PLAN continue same seen earlier EGD noted cards clearance to home NOTED has pain- discuss placement impression, plan, and exam edited and reviewed in detail care discussed with RN await echo Subjective Allergies: Coded Allergies: ASPIRIN (Verified Allergy, Unknown, 01/22/18) EPHEDRINE (Unverified Allergy, Unknown, 01/22/18) HEPARIN ANALOGUES (Verified Allergy, Unknown, 01/22/18) unknown reaction. IBUPROFEN (Verified Allergy, Unknown, UPSET STOMACH/ RASH, 01/22/18) Subjective REVIEWED EGD AND COLON NO CP CARDS AND GI NOTED Objective Last 24 Hour Vital Signs Date Time Temp Pulse Resp B/P (MAP) Pulse Ox O2 Delivery O2 Flow Rate FiO2 01/24/18 09:30 134/61 01/24/18 09:30 97.2 01/24/18 08:48 97.2 01/24/18 04:00 68 01/24/18 04:00 97.2 65 22 121/63 (82) 93 97.2 01/24/18 00:00 97.4 78 21 119/53 (75) 98 97.4 01/24/18 00:00 71 01/23/18 21:15 97.9 71 22 132/44 (73) 95 97.9 01/23/18 21:00 Room Air 01/23/18 20:00 97.9 71 22 167/67 (100) 95 97.9 01/23/18 20:00 71 01/23/18 16:00 73 01/23/18 16:00 98.3 76 18 138/73 (94) 98 98.3 01/23/18 12:00 98.6 75 18 140/81 (100) 95 98.6 01/23/18 12:00 72 01/23/18 11:12 147/72 01/23/18 10:41 98.0 72 18 152/78 100 Room Air 98.0 01/23/18 10:38 70 14 98 01/23/18 10:37 206.8 76 14 98 01/23/18 10:32 74 18 148/71 100 Nasal Cannula 3 7/13/18 10:27 74 16 164/74 100 Nasal Cannula 3 01/23/18 10:22 97.9 76 14 147/65 100 Nasal Cannula 3 97.9 Intake and Output 01/23/18 01/24/18 19:00 07:00 Intake Total 250 ml Balance 250 ml IV Total 250 ml # Bowel Movements 1 1 Labs Test 01/22/18 05:11 01/22/18 06:07 01/22/18 19:15 01/23/18 08:00 White Blood Count 5.2 K/UL (4.8-10.8) 5.2 K/UL (4.8-10.8) Red Blood Count 3.43 M/UL (4.20-5.40) 3.45 M/UL (4.20-5.40) Hemoglobin 10.4 G/DL (12.0-16.0) 10.5 G/DL (12.0-16.0) Hematocrit 32.1 % (37.0-47.0) 31.9 % (37.0-47.0) Mean Corpuscular Volume 94 FL (80-99) 92 FL (80-99) Mean Corpuscular Hemoglobin 30.5 PG (27.0-31.0) 30.4 PG (27.0-31.0) Mean Corpuscular Hemoglobin Concent 32.5 G/DL (32.0-36.0) 32.9 G/DL (32.0-36.0) Red Cell Distribution Width 13.7 % (11.6-14.8) 13.7 % (11.6-14.8) Platelet Count 130 K/UL (150-450) 120 K/UL (150-450) Mean Platelet Volume 7.0 FL (6.5-10.1) 8.2 FL (6.5-10.1) Neutrophils (%) (Auto) 61.3 % (45.0-75.0) 69.7 % (45.0-75.0) Lymphocytes (%) (Auto) 22.3 % (20.0-45.0) 19.2 % (20.0-45.0) Monocytes (%) (Auto) 11.5 % (1.0-10.0) 7.9 % (1.0-10.0) Eosinophils (%) (Auto) 4.0 % (0.0-3.0) 2.1 % (0.0-3.0) Basophils (%) (Auto) 0.9 % (0.0-2.0) 1.1 % (0.0-2.0) Sodium Level 139 MMOL/L (136-145) 140 MMOL/L (136-145) Potassium Level 3.8 MMOL/L (3.5-5.1) 3.8 MMOL/L (3.5-5.1) Chloride Level 106 MMOL/L (98-107) 105 MMOL/L (98-107) Carbon Dioxide Level 27 MMOL/L (21-32) 28 MMOL/L (21-32) Anion Gap 6 mmol/L (5-15) 7 mmol/L (5-15) Blood Urea Nitrogen 9 mg/dL (7-18) 9 mg/dL (7-18) Creatinine 0.9 MG/DL (0.55-1.30) 0.7 MG/DL (0.55-1.30) Estimat Glomerular Filtration Rate > 60 mL/min (>60) > 60 mL/min (>60) Glucose Level 148 MG/DL (74-106) 110 MG/DL (74-106) Calcium Level 8.1 MG/DL (8.5-10.1) 8.5 MG/DL (8.5-10.1) Total Bilirubin 0.8 MG/DL (0.2-1.0) Aspartate Amino Transf (AST/SGOT) 19 U/L (15-37) Alanine Aminotransferase (ALT/SGPT) 14 U/L (12-78) Alkaline Phosphatase 87 U/L (46-116) Total Creatine Kinase 124 U/L (26-308) Creatine Kinase MB 0.6 NG/ML (0.0-3.6) Creatine Kinase MB Relative Index 0.4 Troponin I 0.000 ng/mL (0.000-0.056) 0.000 ng/mL (0.000-0.056) 0.000 ng/mL (0.000-0.056) Total Protein 7.3 G/DL (6.4-8.2) Albumin 2.6 G/DL (3.4-5.0) Globulin 4.7 g/dL Albumin/Globulin Ratio 0.6 (1.0-2.7) Ammonia 69 umol/L (11-32) Prothrombin Time 12.2 SEC (9.30-11.50) Prothromb Time International Ratio 1.2 (0.9-1.1) Activated Partial Thromboplast Time 30 SEC (23-33) Height (Feet): 5 Height (Inches): 3.00 Weight (Pounds): 280 Objective WDWN NAD clear breath sounds bilaterally without rhonchi or wheeze [id number] without MRG NABS nontender no HSM no CCE nonfocal obese Bryan Dale MD Jan 24, 2018 09:37
[2018-01-24 10:52] LABS: BASOPHILS % (AUTO) 0.6 % (0.0-2.0); EOSINOPHILS % (AUTO) 2.1 % (0.0-3.0); HEMATOCRIT 35.3 % (37.0-47.0); HEMOGLOBIN 11.5 G/DL (12.0-16.0); LYMPHOCYTES % (AUTO) 20.7 % (20.0-45.0); MEAN CORPUSCULAR VOLUME 92 FL (80-99); MONOCYTES % (AUTO) 8.4 % (1.0-10.0); NEUTROPHILS % (AUTO) 68.3 % (45.0-75.0); PLATELET COUNT 145 K/UL (150-450); RED BLOOD COUNT 3.84 M/UL (4.20-5.40); RED CELL DISTRIBUTION WIDTH 13.4 % (11.6-14.8); WHITE BLOOD COUNT 5.6 K/UL (4.8-10.8)
[2018-01-24 11:02] LABS: ANION GAP 6 mmol/L (5-15); BLOOD UREA NITROGEN 7 mg/dL (7-18); CALCIUM 8.6 MG/DL (8.5-10.1); CARBON DIOXIDE 28 MMOL/L (21-32); CHLORIDE 100 MMOL/L (98-107); CREATININE 0.7 MG/DL (0.55-1.30); POTASSIUM 3.9 MMOL/L (3.5-5.1); SODIUM 134 MMOL/L (136-145)
[2018-01-24] MEDS ORDERED: NORCO 5-325 TA1 EACH ORAL (11:55)
--- NOTE | 2018-01-24 17:12 | General Progress Note ---
Assessment/Plan Assessment/Plan Assessment 1. Hypertension. 2. Possible acute coronary syndrome. 3. Bipolar disorder. 4. Chronic pain syndrome. 5. Chronic neuropathy. 6. Evidence of anemia. 7. Severe protein-calorie malnutrition. 8. mild esophageal varicies Recommendations 1. po diet 2. outpatient f/u 3. weight loss 4. needs alf HCC surveillence Subjective Allergies: Coded Allergies: ASPIRIN (Verified Allergy, Unknown, 01/22/18) EPHEDRINE (Unverified Allergy, Unknown, 01/22/18) HEPARIN ANALOGUES (Verified Allergy, Unknown, 01/22/18) unknown reaction. Subjective Feels OK no abd pain EGD noted Objective Last 24 Hour Vital Signs Date Time Temp Pulse Resp B/P (MAP) Pulse Ox O2 Delivery O2 Flow Rate FiO2 01/24/18 10:29 97.2 01/24/18 09:30 134/61 01/24/18 09:30 97.2 01/24/18 09:00 Room Air 01/24/18 08:48 97.2 01/24/18 08:00 97.7 65 18 134/61 (85) 100 97.7 01/24/18 08:00 70 01/24/18 04:00 68 01/24/18 04:00 97.2 65 22 121/63 (82) 93 97.2 01/24/18 00:00 97.4 78 21 119/53 (75) 98 97.4 01/24/18 00:00 71 01/23/18 21:15 97.9 71 22 132/44 (73) 95 97.9 01/23/18 21:00 Room Air 01/23/18 20:00 97.9 71 22 167/67 (100) 95 97.9 01/23/18 20:00 71 Intake and Output 01/23/18 01/24/18 19:00 07:00 Intake Total 250 ml Balance 250 ml IV Total 250 ml # Bowel Movements 1 1 Laboratory Tests 01/24/18 10:45: White Blood Count 5.6, Red Blood Count 3.84L, Hemoglobin 11.5L, Hematocrit 35.3L , Mean Corpuscular Volume 92, Mean Corpuscular Hemoglobin 29.9, Mean Corpuscular Hemoglobin Concent 32.5, Red Cell Distribution Width 13.4, Platelet Count 145L, Mean Platelet Volume 7.1, Neutrophils (%) (Auto) 68.3, Lymphocytes ( %) (Auto) 20.7, Monocytes (%) (Auto) 8.4, Eosinophils (%) (Auto) 2.1, Basophils (%) (Auto) 0.6, Sodium Level 134L, Potassium Level 3.9, Chloride Level 100, Carbon Dioxide Level 28, Anion Gap 6, Blood Urea Nitrogen 7, Creatinine 0.7, Estimat Glomerular Filtration Rate > 60, Glucose Level 142H, Calcium Level 8.6 Height (Feet): 5 Height (Inches): 3.00 Weight (Pounds): 280 Objective Obese AA woman NCAT supple CTA RRR soft ND NT no edema non focal Vishnu Cuevas MD Jan 24, 2018 17:12
--- NOTE | 2018-01-25 12:21 | Cardiology Report ---
APPROVED REPORT EKG Measurement Heart [id number] CO 156P37 [id number] Sinus bradycardia Nonspecific T wave abnormality Abnormal ECG
--- NOTE | 2018-01-25 13:33 | Cardiology Report ---
APPROVED REPORT EKG Measurement Heart [id number] 164P74 [id number] Normal sinus rhythm Normal ECG
--- NOTE | 2018-01-27 11:34 | Discharge Summary ---
Discharge Summary Discharge Summary _ DATE OF ADMISSION: 01/22/2018 DATE OF DISCHARGE: 01/24/2018 REASON FOR ADMISSION: 67 years old female with past medical history significant for hypertension, diabetes mellitus, asthma, hepatitis C infection, history of liver cirrhosis, esophageal varices, peripheral neuropathy, bipolar disorder, presented to emergency department with epigastric pain and discomfort in midsternal area which was described as a cramping sensation. Upon evaluation troponin negative EKG revealed no acute ischemic changes. No leukocytosis, hemoglobin 10.4, hematocrit 32.1 Stable renal parameters electrolytes. Ammonia 69 Albumin 2.6. Chest x-ray revealed no acute cardiopulmonary pathology Abdominal ultrasound revealed chronic liver disease/cirrhosis with stigmata of portal hypertension, including splenomegaly and portosystemic varices. Cholelithiasis. Patient admitted with diagnoses of possible acute coronary syndrome, bipolar disorder, chronic pain syndrome, chronic neuropathy, anemia, severe protein calorie malnutrition, liver cirrhosis. CONSULTANTS: border guard Dr. Valdez GI specialist Dr. Cuevas [facility]: Patient admitted to telemetry floor. Cardiology and GI consults were requested. Serial troponin were negative. EKG revealed no acute ischemic changes Organizational Development Director seen and evaluated. Per border guard , patient was ruled out for acute myocardial infarction with serial negative troponin and no ischemic changes on EKG. According to border guard , chest pain was noncardiac . Upon admission patient was started on lactulose and rifaximin. Patient subsequently undergone endoscopy due to abdominal pain and history of esophageal varices Endoscopy revealed grade 2 esophageal varices without significant stigmata and gastritis ,status post biopsy. Biopsy was consistent with mild chronic gastritis and no Helicobacter infection. Patient was on PPI. Antiemetics provided as needed. Nutritional recommendations implemented in plan of care. Pain management provided. Supportive care provided. Hemoglobin and hematocrit were closely monitored with goal to keep hemoglobin above 7. Blood pressure was managed with hydrochlorothiazide and JOLENE inhibitor, remained stable. Blood sugar was closely monitored. Patient was clinically improved and was stable for discharge home with home health services FINAL DIAGNOSES: Noncardiac chest pain Liver cirrhosis Esophageal varices Gastritis Diabetes mellitus Hypertension History of hepatitis C, status post treatment Morbid obesity Bipolar disorder Chronic pain syndrome Chronic neuropathy Severe protein calorie malnutrition Anemia DISCHARGE MEDICATIONS: See Medication Reconciliation list. DISCHARGE INSTRUCTIONS: Patient was discharged home with home health services. Follow-up with the primary care provider in one week. Outpatient follow-up with GI specialist. I have been assigned to dictate discharge summary for this account. I was not involved in the patient's management. Ashlie Morrison NP Jan 27, 2018 11:33
--- NOTE | 2018-02-08 18:36 | Physician Query ---
--------- THIS DOCUMENT IS A PERMANENT PART OF THE MEDICAL RECORD --------- PLEASE COMPLETE THE DOCUMENT BEFORE SIGNING Dear Dr. Bob Valdez Date 02/08/18 Safety Sealer/CDS' Name Esther Brown CCS Exercise your independent professional judgment when responding to query. Questions asked do not imply particular answer is desired or expected. We greatly appreciate your clarification on this issue. Clinical Documentation States: Patient to telemetry floor with diagnosis of possible ACS. Cardiology and GI consults were requested. Serial troponin were negative. EKG revealed no acute ischemic changes and Ham Trimmer was called to see this patient. Per logistics clerk , patient was ruled out for acute myocardial infarction with serial negative troponin and no ischemic changes on EKG. According to logistics clerk , chest pain was noncardiac . Please document the suspected etiology of the patient's non-cardiac Chest Pain: Etiology - non-cardiac [] Anxiety []Pleurisy [] Cancer []Pneumonia, type [] Costochondritis []Pneumothorax [] GERD/Esophagitis []Pulmonary embolism [] Unable to determine []Other: Please also document in your Progress Notes and/or Discharge Summary and indicate if the condition was present on admission. Bob Valdez MD Date and Time [facility]
== END 2018-01-24 12:20 | disposition home health service (06) | DRG 391 ==
LOC: EMR 04:51 → 2E 06:13 → EDBEDREQ 06:13
PROC: 0DD68ZX Extraction of Stomach, Via Natural or Artificial Opening Endoscopic, Diagnostic (ICD-10-PCS; principal; 2018-01-23 10:10)
DX: K21.9 Gastro-esophageal reflux disease without esophagitis (principal); E43 Unspecified severe protein-calorie malnutrition; Z68.42 Body mass index [BMI] 45.0-49.9, adult; I85.00 Esophageal varices without bleeding; F31.9 Bipolar disorder, unspecified; I10 Essential (primary) hypertension; E66.01 Morbid (severe) obesity due to excess calories; K74.60 Unspecified cirrhosis of liver; F41.9 Anxiety disorder, unspecified; B19.20 Unspecified viral hepatitis C without hepatic coma; E11.42 Type 2 diabetes mellitus with diabetic polyneuropathy; G89.4 Chronic pain syndrome; D64.9 Anemia, unspecified; Z82.49 Family history of ischemic heart disease and other diseases of the circulatory system; K29.70 Gastritis, unspecified, without bleeding; R07.89 Other chest pain
CPT/HCPCS: 36415; 71045; 76700; 80048; 80053; 82140; 82550; 82553; 82962; 84484; 85025; 85610; 85730; 93005; 94003; 94150; 99285; J2405

== ENCOUNTER 2018-02-25 13:04 | Outpatient (CLI) | payer MEDICARE, MEDICAID ==
[~2018-02-25 13:04] MED LIST changes: +LISINOPRIL5 MG ORAL; +NORCO 7.5-3251 EACH ORAL; +POTASSIUM CHLOR8 ME2 PO; +TRULICITY0.75 MG/0. SQ
--- NOTE | 2018-02-25 13:32 | GI Progress Note ---
Assessment/Plan Problems: (1) Esophageal varices ICD Codes: I85.00 - Esophageal varices without bleeding SNOMED: 81350658 (2) Diabetes ICD Codes: E11.9 - Diabetes SNOMED: 87296503 (3) Cirrhosis ICD Codes: K74.60 - Cirrhosis SNOMED: 91603486 (4) Anxiety ICD Codes: F41.9 - Anxiety SNOMED: 78170127 (5) Abdominal pain, generalized ICD Codes: R10.84 - Generalized abdominal pain SNOMED: 714944664 (6) Chronic pain ICD Codes: G89.29 - Chronic pain SNOMED: 79114906 Status: stable Status Narrative Seen with Dr. Minor. Assessment/Plan SUMMARY OF FINDINGS EGD reviewed with patient: 1. Grade 2 esophageal varices without any stigmata. 2. Gastritis, status post biopsy. 2016 colonoscopy x 3 polyps history of cirrhosis s/p Hep C tx RECOMMENDATIONS: Follow up biopsy results and treat accordingly. >> H. Pylori negative recommend RD consult Rx tramadol for abdominal pain repeat abdominal U/S x6 months patient is moving out of town, f/u with new primary The patient was seen and examined at bedside and all new and available data was reviewed in the patients chart. I agree with the above findings, impression and plan. (Patient seen earlier today. Signature stamp does not reflect patient encounter time.). - Ashutosh Minor MD Subjective Gastrointestinal/Abdominal: Reports: abdominal pain Objective T 97.5 BP 156/84 P 74 100 RA General Appearance: WD/WN, no apparent distress, alert, obese Cardiovascular: normal rate Respiratory/Chest: normal breath sounds, no respiratory distress Abdominal Exam: normal bowel sounds, non tender, soft Extremities: normal range of motion, non-tender Андрей Juarez GRAVITY PROSPECTOR Feb 25, 2018 13:32
[2018-02-25 13:41] VITALS: BP 156/86
--- NOTE | 2018-02-27 13:59 | IOP Daily Group Progress Note ---
IOP Daily Group Progress Note Treatment Plan/Target Problem: Date: Feb 27, 2018 Group Reflections - Friday: group 1 (9:40am-10:25am) Therapy Goal(s) of Group: anxiety reduction, assertiveness skills, communication skills , coping tools for symptoms, coping with change Observations: active listening skills, focused, participated, participated spontaneously Staff Intervention: assisted with identifying symptoms, assisted with problem solving, encouraged patient participation, clarified pt issues, facilitated discussion Staff Intervention: Therapist facilitated a community meeting, where program rules, dynamic and expectations were reviewed to enhance program participation . Therapist encouraged pt to identify and verbalize their goals and expectations regarding the program. Therapist current mood and feelings that might influence it when performing activities of daily living. Therapist role modeled active listening skills for pt, and invited them to provide feedback to each other to promote empathy development. Therapist validate pt feelings and provided unconditional support and encouraged patients participation while clarifying program objectives regarding pt commitment to their mental health. Response/Progress Noted: Pt did participate in the community meeting by listening attentively and asking relevant question while expressing their opinions and asking relevant questions about program rules and they understanding of it. . Pt received and processed supportive feedback regarding positive attitude and commitment to therapy involvement and emotional regulation mastering throughout practicing healthier coping skills. Pt benefited from participating in this community meeting by identifying and verbalizing present understanding, expectations and personal goals . MARYCRUZ STRICKLAND Feb 27, 2018 13:59
--- NOTE | 2018-02-27 14:16 | IOP Individual Progress Note ---
IOP Individual Progress Note Date: Feb 27, 2018 Interdisciplinary Type: Individual Psychotherapy Interdisciplinary Time: 45 minutes Comments: Patient and therapist met for first time for her individual session. Patient was was agreeable and very cooperative. Therapist explained to the patient confidentiality limits and asked to confirm her understanding. Patient disclosed her past long history of substance abuse and how it had affected her life, specially her relationship with her adult children. Patient shared that she regrets her years of addiction, and feels guilty about her addiction generation conflicts with her children. She explained that one of her daughter is estranged from her and blames her for having addiction issues. Patient stated that she had a relapse two years ago, but for the last two years she has been clean and keeps working in her recovery. Patient reported that she is moving out of state to [place] where two of her children live, and despite being offered to live with them she is determined to stay with one of them until she have access to her own housing. Patient also reported that" I have self-esteem issues due my obesity, I just recently realized that some men could be attracted to somebody like me, I do not rule out to be in a relationship. Patient was encouraged to develop and increased awareness of her relapse triggers and the coping strategies needed to effectively deal with them. Therapist assisted patient with identifying positive traits in her self- disclosing messages, confronting and reframing patients statements and reinforcing the use of more realistic positive messages to self when interpreting life events. MARYCRUZ STRICKLAND Feb 27, 2018 14:16
== END 2018-02-26 13:34 | disposition home or self-care (01) ==
LOC: PAN 13:04
DX: I85.00 Esophageal varices without bleeding (principal); E11.9 Type 2 diabetes mellitus without complications; K74.60 Unspecified cirrhosis of liver; F41.9 Anxiety disorder, unspecified; R10.84 Generalized abdominal pain; G89.29 Other chronic pain; K29.70 Gastritis, unspecified, without bleeding; Z86.19 Personal history of other infectious and parasitic diseases
CPT/HCPCS: 99212

== ENCOUNTER → 2018-07-01 | Outpatient (CLI) | payer MEDICARE, MEDICAID ==
--- NOTE | 2018-07-01 14:01 | GI Progress Note ---
Assessment/Plan Problems: (1) Hepatitis C ICD Codes: B19.20 - Hepatitis C SNOMED: 37745021 (2) Esophageal varices ICD Codes: I85.00 - Esophageal varices without bleeding SNOMED: 52652413 (3) Cirrhosis ICD Codes: K74.60 - Cirrhosis SNOMED: 28136101 (4) Anxiety ICD Codes: F41.9 - Anxiety SNOMED: 27636196 (5) Abdominal pain, generalized ICD Codes: R10.84 - Generalized abdominal pain SNOMED: 959706554 Status: stable Status Narrative Seen with Dr. Minor Assessment/Plan Status post colonoscopy back in May 2016 Status post EGD in January 2018 with grade 2 varices will check Status post hepatitis C treatment Ordered abdominal ultrasound Movantik trial for OIC RTC x 1 month The patient was seen and examined at bedside and all new and available data was reviewed in the patients chart. I agree with the above findings, impression and plan. (Patient seen earlier today. Signature stamp does not reflect patient encounter time.). - Ashutosh Minor MD Subjective Subjective Complaint of epigastric pain Constipation Objective Temperature 98.1 Blood pressure 143/73 Pulse 77 95% room air General Appearance: WD/WN, no apparent distress, alert, obese Cardiovascular: normal rate Respiratory/Chest: normal breath sounds, no respiratory distress Abdominal Exam: normal bowel sounds, non tender, soft Extremities: normal range of motion, non-tender Андрей Juarez NP Jul 01, 2018 14:01
== END | disposition home or self-care (01) ==
LOC: PAN 13:00
DX: B19.20 Unspecified viral hepatitis C without hepatic coma (principal); I85.00 Esophageal varices without bleeding; K74.60 Unspecified cirrhosis of liver; F41.9 Anxiety disorder, unspecified; R10.84 Generalized abdominal pain; K59.00 Constipation, unspecified
CPT/HCPCS: 99212

== ENCOUNTER 2020-07-17 12:22 | Outpatient (CLI) | payer MEDICARE, MEDICAID ==
[~2020-07-17 12:22] MED LIST changes: +DELSYM COUGH+C180 M1 PO; +VENTOLIN HFA18 GM INH; +ZITHROMAX500 MG ORAL
[2020-07-17 12:37] VITALS: BP 149/100
[2020-07-17] MEDS ORDERED: LOSARTAN POTASS50 MG ORAL (12:41)
--- NOTE | 2020-07-17 13:00 | General Progress Note ---
Subjective ROS Limited/Unobtainable: Yes Allergies: Coded Allergies: ACETAMINOPHEN (Verified Allergy, Unknown, 04/21/19) ASPIRIN (Verified Allergy, Unknown, 01/22/18) EPHEDRINE (Unverified Allergy, Unknown, 01/22/18) HEPARIN ANALOGUES (Verified Allergy, Unknown, 01/22/18) unknown reaction. Objective Last 24 Hour Vital Signs Date Time Temp Pulse Resp B/P (MAP) Pulse Ox O2 Delivery O2 Flow Rate FiO2 07/17/20 12:37 96.9 80 18 149/100 98 General Appearance: alert EENT: normal ENT inspection Neck: supple Cardiovascular: normal rate Respiratory/Chest: decreased breath sounds Abdomen: normal bowel sounds, non tender, soft Extremities: non-tender Assessment/Plan Assessment/Plan: Assessment/Plan Problem List: (1) Hepatitis C ICD Codes: B19.20 - Hepatitis C SNOMED: 43636860 (2) Esophageal varices ICD Codes: I85.00 - Esophageal varices without bleeding SNOMED: 31029379 (3) Diabetes ICD Codes: E11.9 - Diabetes SNOMED: 77287116 (4) Cirrhosis ICD Codes: K74.60 - Cirrhosis SNOMED: 95172968 (5) Cholelithiasis ICD Codes: K80.20 - Cholelithiasis SNOMED: 263326756 (6) Anxiety ICD Codes: F41.9 - Anxiety SNOMED: 82816107 Assessment/Plan: us every 6 months EGD every year next colonoscopy in 5 yeard SUMMARY OF FINDINGS: 04/26/2019 1. Esophageal varices, grade 2. 2. Gastritis, status post biopsy. 3. Two colonic polyps removed, see above for details. 4. Diverticulosis. RECOMMENDATIONS: plan EGD and abd us repeat colon in 2023 Ashutosh Minor MD Jul 17, 2020 13:00
== END 2020-07-17 14:22 | disposition home or self-care (01) ==
LOC: PAN 12:22
DX: K80.20 Calculus of gallbladder without cholecystitis without obstruction (principal); B19.20 Unspecified viral hepatitis C without hepatic coma; I85.00 Esophageal varices without bleeding; E11.9 Type 2 diabetes mellitus without complications; K74.60 Unspecified cirrhosis of liver; F41.9 Anxiety disorder, unspecified; K29.70 Gastritis, unspecified, without bleeding; Z86.010 Personal history of colon polyps; K57.90 Diverticulosis of intestine, part unspecified, without perforation or abscess without bleeding
CPT/HCPCS: 99212

== ENCOUNTER 2020-07-24 08:53 | Day surgery (SDC) | payer MEDICAID, MEDICARE ==
[2020-07-24] VITALS (8 sets, daily range): BP systolic 140–174; BP diastolic 54–81
[~2020-07-24] VITALS: Ht 160 cm; Wt 140.6 kg
[~2020-07-24 08:53] MED LIST changes: +LOSARTAN POTASS50 MG ORAL
[2020-07-24] MEDS ORDERED: Midazolam 2mg/2ml Inj ONE (09:30)
[2020-07-24] MEDS ORDERED: Lidocaine 1% Plain 30 ml INJ ONE (09:38)
[2020-07-24] MEDS ORDERED: LR 1000ml ONE (10:00)
[2020-07-24] MEDS ORDERED: Atropine Sulfate 0.4mg/ml inj IVP PRN (10:15)
[2020-07-24] MEDS ORDERED: LORazepam Inj 2mg/ml 1ml IV PRN (10:15)
[2020-07-24] MEDS ORDERED: fentaNYL 100 mcg/2 mL IV PRN (10:15)
[2020-07-24] MEDS ORDERED: LR 1000ml 1,000 ML IVLG SCH (10:15)
[2020-07-24] MEDS ORDERED: Metoclopramide 10mg/2ml Inj IVP PRN (10:15)
[2020-07-24] MEDS ORDERED: Meperidine 25mg/1ml Inj (FOR RIGORS ONLY) IV PRN (10:15)
[2020-07-24] MEDS ORDERED: Hydromorphone 0.5mg/0.5ml inj IVP PRN (10:15)
[2020-07-24] MEDS ORDERED: Midazolam 2mg/2ml Inj IVP PRN (10:15)
[2020-07-24] MEDS ORDERED: DiphenhydrAMINE 50mg/ml Inj IVP PRN (10:15)
[2020-07-24] MEDS ORDERED: Labetalol 5mg/ml 20ml vial IV PRN (10:15)
--- NOTE | 2020-07-24 10:19 | 48 Hour Post Anesthesia Eval ---
Post Anesthesia Evaluation Procedure: EGD Date of Evaluation: Jul 24, 2020 Time of Evaluation: 13:12 Blood Pressure Systolic: 181 0: 94 Pulse Rate: 83 Respiratory Rate: 18 Temperature (Fahrenheit): 98.4 O2 Sat by Pulse Oximetry: 99 Airway: patent Nausea: No Vomiting: No Pain Intensity: 1 Hydration Status: adequate Cardiopulmonary Status: Stable Mental Status/LOC: patient returned to baseline Follow-up Care/Observations: 0 Post-Anesthesia Complications: 0 Follow-up care needed: ready to discharge Chavo Sanches MD Jul 24, 2020 10:19
--- NOTE | 2020-07-24 10:19 | Immediate Post-Op Evaluation ---
Immediate Post-Op Evalulation Immediate Post-Op Evalulation Procedure: EGD Date of Evaluation: Jul 24, 2020 Time of Evaluation: 10:59 IV Fluids: 400 LR Blood Products: 0 Estimated Blood Loss: 1 Urinary Output: 0 Blood Pressure Systolic: 172 Blood Pressure Diastolic: 75 Pulse Rate: 99 Respiratory Rate: 16 O2 Sat by Pulse Oximetry: 99 Temperature (Fahrenheit): 98.1 Pain Score (1-10): 1 Nausea: No Vomiting: No Complications 0 Patient Status: awake, reacts, patent, none Hydration Status: adequate Chavo Sanches MD Jul 24, 2020 10:19
--- NOTE | 2020-07-24 10:22 | Pre-Procedure Note/Attestation ---
Pre-Procedure Note/Attestation Complete Prior to Procedure Planned Procedure: not applicable Procedure Narrative: egd Indications for Procedure Pre-Operative Diagnosis: cirrhosis Attestation I attest that I discussed the nature of the procedure; its benefits; risks and complications; and alternatives (and the risks and benefits of such alternatives), prior to the procedure, with the patient (or the patient's legal goodwill representative). I attest that, if there was a reasonable possibility of needing a blood transfusion, the patient (or the patient's legal goodwill representative) was given the [facility] standardized written summary, pursuant to the [place] Blood Safety Act ([place] Health and Safety Code # 1645, as amended). I attest that I re-evaluated the patient just prior to the surgery and that there has been no change in the patient's H&P, except as documented below: Ashutosh Minor MD Jul 24, 2020 10:22
--- NOTE | 2020-07-24 10:23 | Short Stay Surgery H&P ---
History of Present Illness History of Present Illness Chief Complaint cirrhosis HPI Alexus Monreal is a 70 year old female who was admitted on for GERD Patient History Allergies: Coded Allergies: ACETAMINOPHEN (Verified Allergy, Severe, hives, 07/21/20) ASPIRIN (Verified Allergy, Severe, nausea, 07/21/20) EPHEDRINE (Unverified Allergy, Severe, sob, 07/21/20) HEPARIN ANALOGUES (Verified Allergy, Unknown, 07/21/20) PAST MEDICAL HISTORY: (1) Diabetes (2) Cirrhosis (3) Anxiety Onset Date: 07/21/2014 (4) Cholelithiasis (5) Elevated AFP (6) Esophageal varices (7) Hepatitis C Medication History Scheduled Aripiprazole* (Abilify*), 10 MG ORAL DAILY, (Reported) Duloxetine Hcl* (Cymbalta*), 120 MG ORAL DAILY, (Reported) Folic Acid* (Folic Acid*), 1 MG ORAL DAILY, (Reported) Ibuprofen (Motrin), 800 MG ORAL bid, (Reported) Losartan Potassium* (Losartan Potassium*), Unknown Dose ORAL DAILY, (Reported) Scheduled PRN Zolpidem Tartrate* (Ambien*), 10 MG ORAL HS PRN for Insomnia, (Reported) Miscellaneous Medications Dulaglutide (Trulicity), Unknown Dose SQ, (Reported) Potassium Chloride (Potassium Chloride), 10 PO, (Reported) Discontinued Medications Albuterol Sulfate (Ventolin Hfa), 2 PUFFS INH TID PRN for Shortness of Breath, (Reported) Discontinued Reason: MD discontinued med Alprazolam* (Xanax*), 2 MG ORAL every four hours PRN for For Anxiety, (Reported) Discontinued Reason: MD discontinued med Azithromycin (Zithromax), 500 MG ORAL DAILY, (Reported) Discontinued Reason: Therapy completed Clonidine Hcl* (Catapres*), 0.1 MG ORAL EVERY 8 HOURS Discontinued Reason: MD discontinued med Guaifenesin/Dextromethorphan (Delsym Cough+Chest Cngst Dm Lq), 10 ML PO BID PRN for For Cough, (Reported) Discontinued Reason: MD discontinued med Hydrochlorothiazide* (Hydrochlorothiazide*), 25 MG ORAL DAILY Discontinued Reason: MD discontinued med Hydrocodone Bit/Acetaminophen 7.5-325* (Stout 7.5-325*), 1 TAB ORAL Q6H PRN for For Pain, (Reported) Discontinued Reason: discontinued med Lisinopril (Lisinopril*), Unknown Dose ORAL DAILY, (Reported) Discontinued Reason: MD discontinued med Review of Systems Cardiovascular: Reports: no symptoms Respiratory: Reports: no symptoms Skeletal: Reports: no symptoms Gastrointestinal: Reports: no symptoms Genitourinary: Reports: no symptoms Neurologic: Reports: no symptoms Endocrine: Reports: no symptoms Hematologic: Reports: no symptoms Physical Exam Vital Signs Last Vital Signs Date Time Temp Pulse Resp B/P (MAP) Pulse Ox O2 Delivery O2 Flow Rate FiO2 07/24/20 09:26 96.4 67 18 173/66 98 Room Air Skin: normal HENT: normal Heart: normal Lungs: normal Abdomen: normal Extremities: normal Plan Plan of Care egd Attestation Are the patient's medical conditions optimized for surgery? Attestation Response: yes Ashutosh Minor MD Jul 24, 2020 10:23
--- NOTE | 2020-07-24 10:30 | Anethesia Preoperative Eval ---
Anesthesia Pre-op PMH/ROS General Date of Evaluation: Jul 24, 2020 Time of Evaluation: 10:04 Anesthesiologist: Mryon ASA Score: ASA 3 Mallampati Score Class I : Soft palate, uvula, fauces, pillars visible Class II: Soft palate, uvula, fauces visible Class III: Soft palate, base of uvula visible Class IV: Only hard plate visible Mallampati Classification: Class II Surgeon: Mily Diagnosis: Abd Pain Surgical Procedure: EGD Anesthesia History: none Family History: no anesthesia problems Allergies: Coded Allergies: ACETAMINOPHEN (Verified Allergy, Severe, hives, 07/21/20) ASPIRIN (Verified Allergy, Severe, nausea, 07/21/20) EPHEDRINE (Unverified Allergy, Severe, sob, 07/21/20) HEPARIN ANALOGUES (Verified Allergy, Unknown, 07/21/20) Medications: see eMAR Patient NPO?: Yes Past Medical History Cardiovascular: Reports: HTN Pulmonary: Reports: asthma, other - PE Gastrointestinal/Genitourinary: Reports: GERD, other - Colitis, Hep C, Cirrhosis, GI Ulcer Neurologic/Psychiatric: Reports: other - Bipolar Endocrine: Reports: DM Other: obesity - Morbid BMI 57 Anesthesia Pre-op Phys. Exam Physician Exam Last Vital Signs Date Time Temp Pulse Resp B/P (MAP) Pulse Ox O2 Delivery O2 Flow Rate FiO2 07/24/20 09:26 96.4 67 18 173/66 98 Room Air Constitutional: NAD Neurologic: CN 2-12 intact Cardiovascular: RRR Respiratory: CTA Gastrointestinal: S/NT/ND Airway Exam Mallampati Score: Class II MO: limited ROM: limited Teeth: missing Anesthesia Pre-op A/P Risk Assessment & Plan Assessment: ASA 3 Plan: TIVA Status Change Before Surgery: No Chavo Sanches MD Jul 24, 2020 10:30
--- NOTE | 2020-07-24 10:31 | Endoscopy Procedure Note ---
Endoscopy Procedure Note General Indication for Procedure: cirrhosis Procedures Performed: EGD Operative Findings/Diagnosis: varices Specimen: yes Pt Tolerated Procedure Well: Yes Estimated Blood Loss: none Anesthesia Anesthesiologist: rosa Anesthesia: MAC Inserted Devices Implant(s) used?: No GI Core Measures 50 yrs or older w/o bx or poly: Not Applicable 10yrs. F/U recommended: Not Applicable Ashutosh Minor MD Jul 24, 2020 10:31
--- NOTE | 2020-07-24 11:14 | Procedure Note ---
DATE OF PROCEDURE: 07/24/2020 SURGEON: Ashutosh Minor MD PROCEDURE: Upper endoscopy with biopsy. ANESTHESIOLOGIST: Chavo Sanches MD. INSTRUMENT: Olympus adult flexible upper endoscope. INDICATION: Cirrhosis. REASON FOR PROCEDURE: The procedure, risks, benefits, and possible consequences, including hemorrhage, aspiration, perforation and infection, and alternative treatments, were explained to the patient/legal guardian by Dr. Ashutosh Minor and the patient/legal guardian understood and accepted these risks. PROCEDURE IN DETAIL: After informed consent was obtained and the patient was adequately sedated, Olympus upper endoscope was advanced from mouth into the second portion of the duodenum and retroflexion was performed in the stomach. The patient had diffuse gastritis. Random biopsy from antrum was obtained to rule out H. pylori infection. The patient had multiple gastric polyps most probably fundic gland polyps. GE junction was about 37 centimeter from the incisors. There was a scar from prior banding. There was still some varices, maybe grade 1, maximum grade 2 without any stigmata so no banding was performed. The patient tolerated procedure very well without any complication. SUMMARY OF FINDINGS: 1. Gastritis, status post biopsy. 2. Multiple gastric polyps, most probably fundic gland polyps. 3. Scar in the distal esophagus from prior banding. 4. Varices grade 1, maximum grade 2 about 3 columns. No stigmata. RECOMMENDATIONS: Follow biopsy results and treat accordingly. Asuhtosh Minor M.D. DR: Kirk JOB#: [id number] CC:
== END 2020-07-24 12:20 | disposition home or self-care (01) ==
LOC: GAS 08:53
DX: K74.60 Unspecified cirrhosis of liver (principal); K29.70 Gastritis, unspecified, without bleeding; K31.7 Polyp of stomach and duodenum; E11.9 Type 2 diabetes mellitus without complications; F41.9 Anxiety disorder, unspecified; Z86.19 Personal history of other infectious and parasitic diseases; Z79.899 Other long term (current) drug therapy; Z88.6 Allergy status to analgesic agent; Z88.8 Allergy status to other drugs, medicaments and biological substances; I10 Essential (primary) hypertension; E66.01 Morbid (severe) obesity due to excess calories; Z68.43 Body mass index [BMI] 50.0-59.9, adult; Z86.711 Personal history of pulmonary embolism
CPT/HCPCS: 43239; 94003; J2001; J2250; J7120; U0004; 94150

== ENCOUNTER → 2020-08-08 | Outpatient (CLI) | payer MEDICAID, MEDICARE ==
--- NOTE | 2019-02-02 17:45 | Consultation ---
DATE OF CONSULTATION: 12/31/2018 HISTORY OF PRESENT ILLNESS: The patient is a middle-aged female with history of bipolar disorder. She was previously a client here at the program. She moved to [place] and now she is returning back to [place]. She wants to review her treatments here. She was treated with combination of Cymbalta, Xanax, and Ambien. The patient is pleasant, calm, and cooperative with interview. Follows directions. The patient denies any command hallucinations, sedation, side effects, suicidal ideations, or violent intent. PAST PSYCHIATRIC HISTORY: The patient has a long history of bipolar disorder. SUBSTANCE ABUSE HISTORY: Denied. MEDICAL HISTORY: See chart. SOCIAL HISTORY: At this point is noncontributory. MENTAL STATUS EVALUATION: Alert and oriented to self and situation. Mood is anxious. Affect is appropriate. Thought process is linear. Cognition is intact. Insight and judgment is fair. DIAGNOSES: Crawley I Bipolar disorder. Crawley II Deferred. Crawley III As described. Crawley IV Moderate. Crawley V 45. PLAN: The patient will be restarted back on psychotropic medications. Risks, benefits, and side effects discussed. We will continue to monitor the case. Isma Little M.D. DR: ANN MARIE JOB#: [id number] CC: YANDY
[2020-08-08 09:47] VITALS: BP 160/73
--- NOTE | 2020-08-08 13:05 | General Progress Note ---
Subjective ROS Limited/Unobtainable: Yes Allergies: Coded Allergies: ACETAMINOPHEN (Verified Allergy, Severe, hives, 07/21/20) ASPIRIN (Verified Allergy, Severe, nausea, 07/21/20) EPHEDRINE (Unverified Allergy, Severe, sob, 07/21/20) HEPARIN ANALOGUES (Verified Allergy, Unknown, 07/21/20) Objective Last 24 Hour Vital Signs Date Time Temp Pulse Resp B/P (MAP) Pulse Ox O2 Delivery O2 Flow Rate FiO2 08/08/20 09:47 99.0 78 18 160/73 94 General Appearance: alert EENT: normal ENT inspection Neck: supple Cardiovascular: normal rate Respiratory/Chest: lungs clear Abdomen: hypoactive bowel sounds Extremities: non-tender Assessment/Plan Assessment/Plan: Assessment/Plan Problem List: (1) Hepatitis C ICD Codes: B19.20 - Hepatitis C SNOMED: 91289990 (2) Esophageal varices ICD Codes: I85.00 - Esophageal varices without bleeding SNOMED: 95424652 (3) Diabetes ICD Codes: E11.9 - Diabetes SNOMED: 50727344 (4) Cirrhosis ICD Codes: K74.60 - Cirrhosis SNOMED: 00853166 (5) Cholelithiasis ICD Codes: K80.20 - Cholelithiasis SNOMED: 326965624 (6) Anxiety ICD Codes: F41.9 - Anxiety SNOMED: 33612272 Assessment/Plan: us every 6 months EGD every year next colonoscopy in 5 yeard abd us ordered Ashutosh Minor MD Aug 08, 2020 13:05
== END | disposition home or self-care (01) ==
LOC: PAN 09:38
DX: K80.20 Calculus of gallbladder without cholecystitis without obstruction (principal); B19.20 Unspecified viral hepatitis C without hepatic coma; I85.00 Esophageal varices without bleeding; E11.9 Type 2 diabetes mellitus without complications; K74.60 Unspecified cirrhosis of liver; F41.9 Anxiety disorder, unspecified; F31.9 Bipolar disorder, unspecified

== ENCOUNTER → 2020-09-01 | Outpatient (CLI) | payer MEDICARE ==
[2020-09-01 11:17] LABS: BASOPHILS % (AUTO) 0.6 % (0.0-2.0); EOSINOPHILS % (AUTO) 0.6 % (0.0-3.0); HEMATOCRIT 40.2 % (37.0-47.0); LYMPHOCYTES % (AUTO) 21.5 % (20.0-45.0); MEAN CORPUSCULAR VOLUME 91 FL (80-99); MONOCYTES % (AUTO) 9.9 % (1.0-10.0); NEUTROPHILS % (AUTO) 67.4 % (45.0-75.0); PLATELET COUNT 141 K/UL (150-450); RED BLOOD COUNT 4.41 M/UL (4.20-5.40); RED CELL DISTRIBUTION WIDTH 17.1 % (11.6-14.8); WHITE BLOOD COUNT 6.3 K/UL (4.8-10.8)
[2020-09-01 11:37] LABS: ALANINE AMINOTRANSFERASE 11 U/L (12-78); ALBUMIN 2.9 G/DL (3.4-5.0); ALBUMIN/GLOBULIN RATIO 0.6 (1.0-2.7); ALKALINE PHOSPHATASE 76 U/L (46-116); ANION GAP 7 mmol/L (5-15); ASPARTATE AMINO TRANSFERASE 22 U/L (15-37); BILIRUBIN,TOTAL 1.3 MG/DL (0.2-1.0); BLOOD UREA NITROGEN 10 mg/dL (7-18); CARBON DIOXIDE 29 MMOL/L (21-32); CHLORIDE 110 MMOL/L (98-107); CHOLESTEROL 163 MG/DL (< 200); CREATININE 0.7 MG/DL (0.55-1.30); HDL CHOLESTEROL 69 MG/DL (40-60); POTASSIUM 4.3 MMOL/L (3.5-5.1); SODIUM 146 MMOL/L (136-145); TRIGLYCERIDES 74 MG/DL (30-150)
[2020-09-01 11:38] LABS: BILIRUBIN,DIRECT 0.4 MG/DL (0.0-0.3)
== END | disposition home or self-care (01) ==
LOC: LAB 10:40
DX: R10.9 Unspecified abdominal pain (principal); E11.9 Type 2 diabetes mellitus without complications; I10 Essential (primary) hypertension; G47.00 Insomnia, unspecified
CPT/HCPCS: 36415; 80053; 80061; 82248; 82306; 82607; 83036; 85025